=== PATIENT | female | born 1990 | race Two or more races ===

== ENCOUNTER 2023-02-22 10:43 | Outpatient (REF) | payer MEDICAID, SELFPAY | END 2023-02-22 10:44 | disposition home or self-care (01) | LOC: HO.LAB 10:43 | PROVIDERS: PCP Registered Nurse; Visit Provider Registered Nurse | DX: Z00.00 Encounter for general adult medical examination without abnormal findings (principal); Z11.1 Encounter for screening for respiratory tuberculosis | CPT/HCPCS: 36415; 80053; 80061; 83036; 86481 ==

== ENCOUNTER 2023-10-22 10:58 | Outpatient (REF) | payer MEDICAID, SELFPAY ==
[2023-10-22 14:00] LABS: Alanine Aminotransferase 14 U/L (0-31); Albumin Level 4.4 g/dL (3.5-5.0); Alkaline Phosphatase 54 U/L (39-117); Anion Gap 14 (12-20); Aspartate Amino Transferase 17 U/L (5-31); Bilirubin Total 0.7 mg/dL (0.0-1.0); Blood Urea Nitrogen 9 mg/dL (9-16); Calcium 9.7 mg/dL (8.4-10.2); Carbon Dioxide 25 mmol/L (22-29); Chloride 107 mmol/L (96-108); Cholesterol 185 mg/dL (<200); Estimated Glomerular Filt Rate > 60; Glucose Random 101 mg/dL (60-115); HDL Cholesterol 42 mg/dL (>40); LDL Cholesterol Calculated 131 mg/dL (<100); Potassium 3.6 mmol/L (3.3-5.1); Sodium 142 mmol/L (135-145); Total Protein 7.4 g/dL (6.5-8.0); Triglycerides 64 mg/dL (<150)
[2023-10-22 16:33] LABS: CT PCR NOT DETECTED (Not Detect.); NG PCR NOT DETECTED (Not Detect.)
[2023-10-24 07:09] LABS: RPR Rapid Plasma Reagin NON-REACTIVE (NON-REACTIVE)
[2023-10-25 16:57] LABS: HIV RNA PCR Qn Copies Not Detected Copies/mL; HIV RNA PCR Qn Log Copies Not Detected Log cps/mL
== END 2023-10-22 10:59 | disposition home or self-care (01) ==
LOC: HO.HHCL 10:58
PROVIDERS: Visit Provider Nurse Practitioner Family
DX: Z11.4 Encounter for screening for human immunodeficiency virus [HIV] (principal); Z11.3 Encounter for screening for infections with a predominantly sexual mode of transmission; E66.9 Obesity, unspecified
CPT/HCPCS: 0353U; 36415; 80053; 80061; 86592; 87536; 87900

== ENCOUNTER 2024-02-08 16:45 | Outpatient (REF) | payer MEDICAID, SELFPAY ==
[2024-02-08 18:04] LABS: Bacterial Vaginosis PCR POSITIVE (Negative); Candida Group PCR DETECTED (Not Detect); Candida glab krusei PCR NOT DETECTED (Not Detect); Trichomonas vaginalis PCR NOT DETECTED (Not Detect)
[2024-02-08 18:39] LABS: CT PCR NOT DETECTED (Not Detect.); NG PCR NOT DETECTED (Not Detect.)
== END 2024-02-08 16:46 | disposition home or self-care (01) ==
LOC: HO.HHCLNP 16:45
PROVIDERS: Visit Provider Nurse Practitioner Family
DX: R10.32 Left lower quadrant pain (principal)
CPT/HCPCS: 0352U; 0353U

== ENCOUNTER 2024-02-18 16:40 | Outpatient (REF) | payer MEDICAID, SELFPAY ==
[2024-02-29 09:11] LABS: HPV mRNA E6/E7 rflx Not Detected
== END 2024-02-18 16:41 | disposition home or self-care (01) ==
LOC: HO.HHCLNP 16:40
PROVIDERS: Visit Provider Advanced Practice Midwife
DX: Z12.4 Encounter for screening for malignant neoplasm of cervix (principal)
CPT/HCPCS: 36415; 87624; 87625; 88175

== ENCOUNTER 2024-10-15 15:03 | Outpatient (REF) | payer MEDICAID, SELFPAY ==
[2024-10-15 16:16] LABS: MANUAL DIFF FLAG NO
[2024-10-15 16:19] LABS: Basophils Absolute Auto 0.1 X10*3/uL (0.0-0.2); Basophils Percent Auto 0.9 % (0-2); Eosinophils Absolute Auto 0.2 X10*3/uL (0.0-0.4); Eosinophils Percent Auto 4.2 % (0-4); Hematocrit 41.5 % (37.0-47.0); Hemoglobin 14.1 g/dl (12.0-16.0); Lymphocytes Absolute Auto 2.6 X10*3/uL (1.2-4.9); Mean Corpuscular Hemoglobin 30.9 pg (27.0-33.0); Mean Platelet Volume 12.8 fL (9.4-12.3); Monocytes Absolute Auto 0.5 X10*3/uL (0.1-1.2); Neutrophils Absolute Auto 2.3 x10*3/uL (2.0-8.3); Neutrophils Percent Auto 39.9 % (45-73); Platelet Count 196 X10*3/uL (160-400); Red Blood Count 4.56 X10*6/uL (4.20-5.50); Red Cell Distribution Width 11.9 % (11.0-16.0); White Blood Count 5.7 X10*3/uL (4.8-10.8)
[2024-10-15 16:36] LABS: Anion Gap 9 (12-20); Blood Urea Nitrogen 11 mg/dL (9-16); Calcium 9.3 mg/dL (8.4-10.2); Carbon Dioxide 25 mmol/L (22-29); Chloride 109 mmol/L (96-108); Estimated Glomerular Filt Rate > 60; Glucose Random 83 mg/dL (60-115); Sodium 139 mmol/L (135-145)
[2024-10-15 16:42] LABS: Estimated Average Glucose 103 mg/dL; Hemoglobin A1c % 5.2 % (<6.0)
[2024-10-15 16:56] LABS: TSH reflex Free T4 0.62 uIU/mL (0.32-4.0)
--- OUTSIDE RECORDS SUMMARY | 2024-10-15 18:40 | XMS_ITS | Encounter Summary ---
Author Organization [employer] Address [address] [facility] 7[address] [place] [address] Care Team Providers Care Bank Vault Attendant Name Role Phone Carlton Mota CNP Primary Care Provider [phone] [phone] Reason for Referral * Imaging (Routine) - Authorized Specialty Diagnoses / Procedures Referred By Contpinky t Referred To Contact Radiology Diagnoses History of uterine fibroid Procedures Us Pelvis complete Carlton oMta CNP [address] [place] [address] Phone: tel: fax: [facility] [address], [address] [place] [address] Phone: tel: fax: Referral ID Status Reason Start Date Expiration Date V isits Requested Visits Authorized [id number] Authorized 10/15/2024 10/15/2025 1 1 Reason for Visit * Reason Comments Transfer Pt Encounter Details Date Type Department Care Team (Late st Contact Info) Description 10/15/2024 2:00 PM EST Office Visit [facility] [address] [place], [place] [phone] Carlton Mota CNP [address] [place] [address] Healthcare maintenance (Primary Dx); Chronic migraine without aura without status migrainosus, not intractable; Anxiety; Left lower quadrant pain; History of uterine fibroid; Heat intolerance Social History Tobacco Use Types Packs/Day Years Used Date Smoking Tobacco: Never Smokeless Tobacco: Never Alcohol Use Standard Drinks/Week Comments Never 0 (1 standard drink = 0.6 oz pur e alcohol) special occasions, manoj Depression Answer Date Recorded Patient Health Questionnaire-9 Score 4 10/15/2024 Patient Health Questionnaire-9 Score 4 10/15/2024 Last PHQ-9: Questionnaire Data Not on file 0 10/15/2024 Housing Stability Answer Date Recorded What is your housing situation today? I have jaylen elizalde 06/25/[address] you li ve. Do you have problems with any of the following? None of the above 06/25/2023 Food Insecurity Answer Date Recorded Within the past 12 months, y ou worried that your food would run out before you got money to buy more: Never True 06/25/2023 Within the past 12 months,th e food you bought just didn't last and you didn't have enough money to get more: Never True 01/2023 Transportation Answer Date Recorded In the past 12 months, has l ack of transportation kept you from medical appts, meetings, work or from getting things needed for daily living? No 06/25/2023 Utilities Answer Date Recorded In the past 12 months, has t he electric, gas, oil or water company threatened to shut off services in your home? No 06/25/2023 Depression Answer Date Recorded Patient Health Questionnaire-2 Score 2 10/15/2024 Internet Access Answer Date Recorded Internet Access Q1 Yes 10/03/2024 Internet Access Q2 Not on file 10/03/2024 Comments No Sex and Gender Information Value Date Recorded Sex Assigned at Female 06/19/2022 10:37 AM EDT Legal Sex Female 10:37 AM EDT Gender Identity Female 06/19/2022 10:37 AM EDT Sexual Orientation Straight 06/19/2022 10 :37 AM EDT documented as of this encounter Last Filed Vital Signs Vital Sign Reading Time Taken Comments Blood Pressure 114/72 10/15/2024 2:09 PM EST Pulse 88 10/15/2024 2:09 PM EST Temperature 36.8 ??C (98.2 ??F) 10/15/2024 2:09 PM ES T Respiratory Rate 16 10/15/2024 2:09 PM EST Oxygen Saturation 99% 10/15/2024 2:09 PM EST Inhaled Oxygen Concentration - - Weight 85.1 kg (187 lb 9.6 oz) 10/15/2024 2:09 P M EST Height - - Body Mass Index 28.52 02/18/2024 9:26 AM EDT documented in this encounter Progress Notes * Carlton Mota CNP - 10/15/2024 2:00 PM EST Images from the original note were not included. Subjective: Ranjith Hercules is a 34 y.o. female who presents to the office for a transfer patient visit. Previous PCP Mariajose. Interim history: Pt established with for depression and anxiety. Missed last appointment in 04/2024. Last visit on 03/2024 with Mariajose. At this point she discussed menorrhagia. She was advised to take ibuprofen and alternate with tylenol. She had a pelvic US on 01/2024 which showed single fibroid measuring 1.3x1.0x1.3 cm. Pt has hx of migraines, they are controlled on Excedrin, gets them less than once a month. Current concerns: Fibroid- Pt reporting that she feels a bulge when she coughs on the same side as the fibroid, she also reports that she feels like her fibroid gets larger with her period. She reports her periods are regular, she gets them monthly, they are not painful, bleeding is manageable and period lasts 5 days. She would like to have the fibroid reevaluated. Heat intolerance- Pt reports she has been having hot flashes her last incident was this past Sunday she was sitting down watching a [employer] movie with her partner and all of a sudden she got hot andstarted sweating. 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 Patient Active Problem List Diagnosis Class 1 obesity Menorrhagia Migraine Constipation Sensitive skin Moderate episode of recurrent major depressive disorder (CMS/HCC) Anxiety History of uterine fibroid Heat intolerance Past Surgical History: Procedure Laterality Date COSMETIC SURGERY abdominoplasty TUBAL LIGATION Family History Problem Relation Name Age of Onset Diabetes Mother Emma Justine Other (epilepsy) Mother Emma Justine Arthritis Mother Emma Justine Diabetes Maternal Grandmother Fide Grigsby Diabetes Maternal Grandfather Fide Grigsby Arthritis Maternal Grandfather Fide Grigsby Asthma Son Jackie Robertson Intellectual Disability Son Jackie Robertson Social History Living situation: lives at home 3 children 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 LMP 10/02, last about 5 days, normal bleeding, says cramping is manageable. No Known Allergies Review of Systems Constitutional: Negative for chills, diaphoresis, fatigue and unexpected weight change. Respiratory: Negative for cough, choking, chest tightness, shortness of breath and wheezing. Cardiovascular: Negative for chest pain and palpitations. Gastrointestinal: Negative for abdominal distention, abdominal pain, constipation, diarrhea, nauseaand vomiting. Genitourinary: Positive for pelvic pain. Negative for vaginal bleeding, vaginal discharge and vaginal pain. Reports the pelvic pain in left lower pelvic area when she coughs or after sex Musculoskeletal: Negative for arthralgias, back pain and myalgias. Neurological: Negative. Psychiatric/Behavioral: Negative. Vitals: 10/15/24 1409 BP: 114/72 Pulse: 88 Resp: 16 Temp: 98.2 ??F (36.8 ??C) TempSrc: Oral SpO2: 99% Weight: 187 lb 9.6 oz (85.1 kg) Physical Exam Constitutional: General: She is not in acute distress. Appearance: Normal appearance. She is not ill-appearing. HENT: Head: Normocephalic and atraumatic. Right Ear: Tympanic membrane, ear canal and external ear normal. There is no impacted cerumen. Left Ear: Tympanic membrane, ear canal and external ear normal. There is no impacted cerumen. Nose: No congestion or rhinorrhea. Mouth/Throat: Mouth: Mucous membranes are moist. Pharynx: No oropharyngeal exudate or posterior oropharyngeal erythema. Eyes: General: No scleral icterus. Right eye: No discharge. Left eye: No discharge. Extraocular Movements: Extraocular movements intact. Pupils: Pupils are equal, round, and reactive to light. Cardiovascular: Rate and Rhythm: Normal rate and regular rhythm. Pulses: Normal pulses. Heart sounds: Normal heart sounds. No murmur heard. No friction rub. No gallop. Pulmonary: Effort: Pulmonary effort is normal. No respiratory distress. Breath sounds: Normal breath sounds. No stridor. No wheezing, rhonchi or rales. Chest: Chest wall: No tenderness. Abdominal: General: Abdomen is flat. Bowel sounds are normal. There is no distension. Palpations: Abdomen is soft. There is no mass. Tenderness: There is no abdominal tenderness. There is no guarding. Comments: Palpated some scar tissue underneath abdominoplasty scar on LLQ Musculoskeletal: General: Normal range of motion. Cervical back: Normal range of motion and neck supple. No tenderness. Right lower leg: No edema. Left lower leg: No edema. Lymphadenopathy: Cervical: No cervical adenopathy. Skin: General: Skin is warm and dry. Capillary Refill: Capillary refill takes less than 2 seconds. Neurological: General: No focal deficit present. Mental Status: She is alert and oriented to person, place, and time. Psychiatric: Mood and Affect: Mood normal. Behavior: Behavior normal. Thought Content: Thought content normal. Judgment: Judgment normal. Problem List Items Addressed This Visit Migraine Overview Occurring <1 a month, controlled with Excedrin Current Assessment & Plan Sent refills of Excedrin to have on hand for migraines, as of now they are stable and are limited to <1 a month Relevant Medications hydrOXYzine pamoate (Vistaril) 25 MG capsule [id number] (Excedrin Migraine) 250-250-65 MG tablet Anxiety Current Assessment & Plan Pt reports that anxiety is manageable and she is happy with Vistaril 25 mg prn She does have care team and declines further support at this time. RESOLVED: Left lower quadrant pain History of uterine fibroid Current Assessment & Plan Will obtain repeat pelvic us to reevaluate size of fibroid Also provided MEDICAL DOCTOR referral for removal consultation Based on exam, the mass she feels when she coughs may be related to scar tissue under her abdominoplasty incision F/u in 1 month or sooner for this issue Relevant Orders Us Pelvis complete Heat intolerance Current Assessment & Plan No known family hx of thyroid disorders Will obtain routine blood work including thyroid panel- see orders Other Visit Diagnoses Healthcare maintenance - Primary Relevant Orders TSH W/Reflex to FT4 CBC auto differential (Completed) Basic Metabolic Panel (Completed) Hemoglobin A1c (Completed) Routine Screening and Health Maintenance Optometry: Yes, [facility], has appointment end of November Dentist: Yes next appointment in March Routine Cancer Screening Cervical CA: 02/18/2024, NILM, HPV Neg HHC SLAB INSPECTOR Attestation SLAB INSPECTOR Resident Attestation: Patient was seen and evaluated by Carlton Mota CNP, in collaboration with Christian Martinez MDwho has reviewed my assessment and plan. I, Michelle Gonzalse MD , have reviewed the resident's note and agree with the assessment & plan of care as documented above. documented in this encounter Miscellaneous Notes * Assessment & Plan Note - Carlton Mota CNP - 10/15/2024 4:46 PM EST Associated Problem(s): History of uterine fibroid Will obtain repeat pelvic us to reevaluate size of fibroid Also provided MEDICAL DOCTOR referral for removal consultation Based on exam, the mass she feels when she coughs may be related to scar tissue under her abdominoplasty incision F/u in 1 month or sooner for this issue * Assessment & Plan Note - Carlton Mota CNP - 10/15/2024 4:44 PM EST Associated Problem(s): Anxiety Pt reports that anxiety is manageable and she is happy with Vistaril 25 mg prn She does have care team and declines further support at this time. * Assessment & Plan Note - Carlton Mota CNP - 10/15/2024 4:43 PM EST Associated Problem(s): Migraine Sent refills of Excedrin to have on hand for migraines, as of now they are stable and are limited to <1 a month * Assessment & Plan Note - Carlton Mota CNP - 10/15/2024 4:42 PM EST Associated Problem(s): Heat intolerance No known family hx of thyroid disorders Will obtain routine blood work including thyroid panel- see orders documented in this encounter Plan of Treatment Upcoming Encounters Date Type Department Care Team (Late st Contact Info) Description 11/12/2024 3:15 PM EDT Office Visit [facility] [address] [place] [phone] Carlton Mota CNP [address] [employer], [place] [phone] Scheduled Orders Name Type Priority Associated Diagnoses Orde r Schedule Us Pelvis complete Imaging Routine History of uterine fibroid Expected: 10/15/2024, Expires: 10/15/2025 documented as of this encounter Procedures Procedure Name Priority Date/Time Associated Diagnosis Comments TSH W/REFLEX TO FT4 Routine 10/15/2024 3 :07 PM EST Healthcare maintenance CBC WITH AUTO DIFFERENTIAL Routine 10/15/2024 3:07 PM EST Healthcare maintenance HEMOGLOBIN A1C Routine 10/15/2024 3:07 PM EST Healthcare maintenance BASIC METABOLIC PANEL Routine 10/15/2024 3:07 PM EST Healthcare maintenance documented in this encounter Results * Hemoglobin A1c (10/15/2024 3:07 PM EST) Hemoglobin A1c 5.2 <6.0 % [facility] Comment:Hemoglobin A1C Refer ence Range Adults: 4.8 - 6.0 % Non diabetic: < 6.0 % Goal: < 7.0 %Additional Action Suggested: > 8.0 %Note: Hemoglobin A1c results are invalid for patients with abnormal amounts of HbF. Blood transfusions may impact the HbA1c concentration in the patient sample. Estimated Average Glucose 103 mg/dL [facility] Comment:eAG = Estimated ave rage glucose which is %A1C expressed asaverage glucose, using the formula of the Q4I-KtjqtqgUkjkidb Glucose study (ADAG), Diabetes Care, Vol.31,#8,Mar. 2007 Blood Venous blood specimen / Unknown 10/15/2024 3:07 PM EST 10/15/2024 4:14 PM EST [facility] BLOOD ORDERABLES Tiara l Result Performing Organization Address [facility] Co de Phone Number [facility] [address] [place] [phone] [phone] * (ABNORMAL) Basic Metabolic Panel (10/15/2024 3:07 PM EST) Sodium 139 135 - 145 mmol/L [facility] Potassium 4.0 3.3 - 5.1 mmol/L [facility] Chloride 109(H) 96 - 108 mmol/L [facility] Carbon Dioxide 25 22 - 29 mmol/L [facility] Anion Gap 9(L) 12 - 20 [facility] Urea Nitrogen (BUN) 11 9 - 16 mg/dL [facility] Creatinine, Serum 0.74 0.5 - 1.4 mg/dL [facility] Estimated Glomerular Filt Rate >60 [facility] Comment:Chronic Kidney Disea se: Estimated GFR < 60 mL/min/1.34x2Wxigmk Kidney Disease: Estimated GFR < 15 mL/min/1.73m2 Glucose 83 60 - 115 mg/dL [facility] Calcium 9.3 8.4 - 10.2 mg/dL [facility] Blood Venous blood specimen / Unknown 10/15/2024 3:07 PM EST 10/15/2024 4:14 PM EST [facility] BLOOD ORDERABLES Tiara l Result Performing Organization Address [facility] Co de Phone Number [facility] [address] [place] [phone] * (ABNORMAL) CBC auto differential (10/15/2024 3:07 PM EST) White Blood Count 5.7 4.8 - 10.8 X10*3/uL [facility] Red Blood Count 4.56 4.20 - 5.50 X10*6/uL [facility] Hemoglobin 14.1 12.0 - 16.0 g/dl [facility] Hematocrit 41.5 37.0 - 47.0 % [facility] Mean Corpuscular Volume 91.0 80.0 - 98.0 fL [facility] Mean Corpuscular Hemoglobin 30.9 27.0 - 33.0 pg [facility] Mean Corpuscular HGB Conc 34.0 31.0 - 35.0 g/dl [facility] Red Cell Distribution Width 11.9 11.0 - 16.0 % [facility] Platelet Count 196 160 - 400 X10*3/uL [facility] Mean Platelet Volume 12.8(H) 9.4 - 12.3 fL [facility] Neutrophils Percent Auto 39.9(L) 45 - 73 % [facility] Imm Gran Pct Auto 0.0 0.0 - 0.4 % [facility] Lymphocytes Percent Auto 46.0(H) 20 - 40 % [facility] Monocytes Percent Auto 9.0 2 - 11 % [facility] Eosinophils Percent Auto 4.2(H) 0 - 4 % [facility] Basophils Percent Auto 0.9 0 - 2 % [facility] NRBC Pct Auto 0.0 0.0 - 0.2 /100WBC [facility] Neutrophils Absolute Auto 2.3 2.0 - 8.3 x10*3/uL [facility] Imm Gran Abs Auto 0.00 0.00 - 0.03 X10*3/uL [facility] Lymphocytes Absolute Auto 2.6 1.2 - 4.9 X10*3/uL [facility] Monocytes Absolute Auto 0.5 0.1 - 1.2 X10*3/uL [facility] Eosinophils Absolute Auto 0.2 0.0 - 0.4 X10*3/uL [facility] Basophils Absolute Auto 0.1 0.0 - 0.2 X10*3/uL [facility] NRBC Abs Auto 0.000 0.0 - 0.012 X10*3/uL [facility] Blood Venous blood specimen / Unknown 10/15/2024 3:07 PM EST 10/15/2024 4:14 PM EST [facility] BLOOD ORDERABLES Tiara l Result Performing Organization Address [facility] Co de Phone Number [facility] [address] [place] [phone] * TSH W/Reflex to FT4 (10/15/2024 3:07 PM EST) TSH reflex Free T4 0.62 0.32 - 4.0 uIU/mL [facility] Blood Venous blood specimen / Unknown 10/15/2024 3:07 PM EST 10/15/2024 4:14 PM EST [facility] BLOOD ORDERABLES Tiara l Result Performing Organization Address [facility] Co de Phone Number [facility] [address] [place] [phone] documented in this encounter Visit Diagnoses Diagnosis Healthcare maintenance- Primary Chronic migraine without aura without status migrainosus, not intractable Anxiety Anxiety state, unspecified Left lower quadrant pain Abdominal pain, left lower quadrant History of uterine fibroid Heat intolerance Unspecified effects of heat and light documented in this encounter Additional Health Concerns Assessment Noted Time PHQ-9 Depression Total Score: 4 10/15/19 25 2:21 PM EST documented as of this encounter Care Teams Bank Vault Attendant Relationship Specialty Start Date End Date Carlton Mota CNP [address] [place] [phone] PCP - General Family Medicine 09/05/24 documented as of this encounter
--- OUTSIDE RECORDS SUMMARY | 2024-10-15 18:40 | XMS_ITS | Encounter Summary ---
Author Organization [employer] Address [address] [place] [address] Care Team Providers Care Metal Polisher Name Role Phone Nakul Brodymauricio JORDAN Primary Care Provider [phone] Encounter Details Date Type Department Care Team (Latest Contact Info) Description 10/12/2024 Travel Social History Tobacco Use Types Packs/Day Years Used Date Smoking Tobacco: Never Smokeless Tobacco: Never Alcohol Use Standard Drinks/Week Comments Never 0 (1 standard drink = 0.6 oz pur e alcohol) special occasions, manoj Depression Answer Date Recorded Patient Health Questionnaire-9 Score 9 04/15/2024 Patient Health Questionnaire-9 Score 9 04/15/2024 Last PHQ-9: Questionnaire Data Not on file 0 04/15/2024 Housing Stability Answer Date Recorded What is [...] Answer Date Recorded Patient Health Questionnaire-2 Score 4 04/15/2024 Internet Access Answer Date Recorded Internet Access Q1 Yes 10/03/2024 Internet Access Q2 Not on file 10/03/2024 Comments No Sex and Gender Information Value Date Recorded Sex Assigned at Female 06/19/2022 10:37 AM EDT Legal Sex Female 10:37 AM EDT Gender Identity Female 06/19/2022 10:37 AM EDT Sexual Orientation Straight 06/19/2022 10 :37 AM EDT documented as of this encounter Plan of Treatment Upcoming Encounters Date Type Department Care Team (Late st Contact Info) Description 11/12/2024 3:15 PM EDT Office Visit [facility] [address] [place] [address] Carlton Mota CNP [address] [place] [address] documented as of this encounter Visit Diagnoses Not on filedocumented in this encounter Additional Health Concerns Assessment Noted Time PHQ-9 Depression Total Score: 9 04/15/20 24 1:14 PM EDT documented as of this encounter Care Teams Metal Polisher Relationship Specialty Start Date End Date Carlton Mota CNP [address] [place], [place] [phone] PCP - General Family Medicine 09/05/24 documented as of this encounter
--- OUTSIDE RECORDS SUMMARY | 2024-10-15 18:40 | XMS_ITS | Encounter Summary ---
Author Organization [employer] Address [address] [facility] [address] [place] [address] Care Team Providers Care Optician Name Role Phone Carlton Mota CNP Primary Care Provider [phone] Reason for Visit * Reason Comments Pre-visit Planning SDOH Screening negat mp and Tobacco screening negative Encounter Details Date Type Department Care Team ([facility] st Contact Info) Description 10/03/2024 Patient Outreach [facility] [address] [place] [address] Carlton Mota CNP [address] [place] [address] Pre-visit Planning (SDOH Screening negative and Tobacco screening negative) Social History Tobacco Use Types Packs/Day Years [...] AM EDT documented as of this encounter Progress Notes * Wilma Godinez - 10/03/2024 9:26 AM EST ESAU Meeks placed successful outbound call to patient for pre-visit planning. Patient name and confirmed. Patient confirms appt date and time, and has transportation arrangements. 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 Patient educated on extended clinic hours. Patient advised to bring to appointment a photo id andinsurance card. Appropriate screenings completed in anticipation of appointment. documented in this encounter Plan of Treatment Upcoming Encounters Date Type Department Care Team (Late st Contact Info) Description 11/12/2024 3:15 PM EDT Office Visit [facility] [address] [place] [address] Carlton Mota CNP [address] [place] [address] documented as of this encounter Visit Diagnoses Not on filedocumented in this encounter Additional Health Concerns Assessment Noted Time PHQ-9 Depression Total Score: 9 04/15/20 24 1:14 PM EDT documented as of this encounter Care Teams Optician Relationship Specialty Start Date End Date Carlton Mota CNP [address] [place] [phone] PCP - General Family Medicine 09/05/24 documented as of this encounter
--- OUTSIDE RECORDS SUMMARY | 2024-10-15 18:40 | XMS_ITS | Encounter Summary ---
Author Organization [facility] Address [address] 7[address] [place] [address] Care Team Providers Care Fingerprint Expert Name Role Phone Nakul Brodymauricio JORDAN Primary Care Provider [phone] Encounter Details Date Type Department Care Team (Latest Contact Info) Description 10/15/2024 Travel Social History Tobacco Use Types Packs/Day [...] Description 11/12/2024 3:15 PM EDT Office Visit [facility] [address] [place] [address] Carlton Mota CNP [address] [place] [address] documented as of this encounter Visit Diagnoses Not on filedocumented in this encounter Additional Health Concerns Assessment Noted Time PHQ-9 Depression Total Score: 4 10/15/19 2:21 PM EST documented as of this encounter Care Teams Fingerprint Expert Relationship Specialty Start Date End Date Carlton Mota CNP [address] [place] [address] PCP - General Family Medicine 09/05/24 documented as of this encounter
--- OUTSIDE RECORDS SUMMARY | 2024-10-15 18:40 | XMS_ITS | Clinical Summary ---
Author Organization [employer] Address [address] [facility] 7t [place] [address] Care Team Providers Care Container Washer Machine Name Role Phone Carlton Mota CNP Primary Care Provider [phone] Allergies No known active allergies Medications * This document contains information received from the source organization and may not represent a complete record from that organization. hydrOXYzine pamoate (Vistaril) 25 MG capsuleIndicati ons:Chronic migraine without aura without status migrainosus, not intractable Take 1 capsule (25 mg) by mouth every 8 (eight) hours if needed for anxiety. 30 capsule 1 10/15/19 25 026 Active aspirin-acetami nophen-caffeine (Excedrin Migraine) 250-250-65 MG tabletIndicatio ns:Chronic migraine without aura without status migrainosus, not intractable Take 2 tablets by mouth if needed each day for headaches. 90 tablet 1 10/15/19 25 Active aspirin-acetami nophen-caffeine (Excedrin Migraine) 250-250-65 MG tabletIndicatio ns:Chronic migraine without aura without status migrainosus, not intractable Take 2 tablets by mouth if needed each day for headaches. 90 tablet 1 02/23/20 23 025 Discontinued(Re order (will not trigger notification to Pharmacy)) hydrOXYzine pamoate (Vistaril) 25 MG capsule Take 1 capsule (25 mg) by mouth every 8 (eight) hours if needed for anxiety. 30 capsule 1 04/11/20 24 025 Discontinued(Re order (will not trigger notification to Pharmacy)) aspirin-acetami nophen-caffeine (Excedrin Migraine) 250-250-65 MG tabletIndicatio ns:Chronic migraine without aura without status migrainosus, not intractable Take 2 tablets by mouth if needed each day for headaches. 90 tablet 1 10/15/19 25 025 Discontinued Active Problems Problem Noted Date Diagnosed Date History of uterine fibroid 10/15/2024 Assessment & Plan (10/15/2024 4:46 PM EST): Will obtain repeat pelvic us to reevaluate size of fibroid Also provided FUR SEWER referral for removal consultation Based on exam, the mass she feels when she coughs may be related to scar tissue under her abdominoplasty incision F/u in 1 month or sooner for this issue Heat intolerance 10/15/2024 Assessment & Plan (10/15/2024 4:42 PM EST): No known family hx of thyroid disorders Will obtain routine blood work including thyroid panel- see orders Moderate episode of recurrent major depressive d isorder 04/15/2024 Anxiety 04/15/2024 Assessment & Plan (10/15/2024 4:44 PM EST): Pt reports that anxiety is manageable and she is happy with Vistaril 25 mg prn She does have care team and declines further support at this time. Class 1 obesity 02/22/2023 Menorrhagia 02/22/2023 Overview (02/22/2023): Heavy w/ cramps. Regular. LMP: 02/02/23. Assessment & Plan (02/22/2023 10:07 AM EDT): Not treating with anything. Not seeking Contraception: BTL 7 years ago F/u 1 month with new PCP Migraine 02/22/2023 Overview (10/15/2024): Occurring <1 a month, controlled with Excedrin Assessment & Plan (10/15/2024 4:43 PM EST): Sent refills of Excedrin to have on hand for migraines, as of now they are stable and are limited to <1 a month Assessment & Plan (02/22/2023 10:05 AM EDT): Educated pt to track migraines, notice triggers Rx Excedrin 2 tab daily PRN for headaches F/u 1 month TP with new PCP Constipation 02/22/2023 Assessment & Plan (02/22/2023 10:08 AM EDT): Pt does not drink water Recommended 8 glasses of water/day Add flavoring to water followup 1 month with TP with new PCP Sensitive skin 02/22/2023 Overview (02/22/2023): Sensitive skin Irritated by exposure contact with plastic bags/surfaces Assessment & Plan (02/22/2023 10:13 AM EDT): Self-resolving within 1 day Recommended using sensitive soaps/lotions Avoiding contact with items that irritate the skin most Followup PRN Resolved Problems Problem Noted Date Diagnosed Date Resolved Date Left lower quadrant pain 10/15/2024 Encounters Date Type Department Care Team Description 10/15/2024 2:00 PM EST Office Visit [facility] [address] [place] [phone] Carlton Mota CNP Healthcare maintenance (Primary Dx); Chronic migraine without aura without status migrainosus, not intractable; Anxiety; Left lower quadrant pain; History of uterine fibroid; Heat intolerance 10/15/2024 Travel 10/12/2024 Travel 10/03/2024 Patient Outreach [facility] [address] [place] [phone] Carlton Mota CNP Pre-visit Planning (SDOH Screening negative and Tobacco screening negative) 09/30/2024 Telephone [facility] [address] [place] [phone] Carlton Mota CNP Chart Prep from Last 3 Months Immunizations Name Administration Dates Next Due Hep B, adult 10/22/2023,02/22/2023 Pfizer Covid-19 Vaccine 12+ carlie-sucrose (Amaya C ap) 01/11/2021,12/21/2020 Tdap 10/22/2023 Family History Medical History Relation Name Comments Arthritis Maternal Grandfather Fide Grigsby Diabetes Maternal Grandfather Fide Grigsby Diabetes Maternal Grandmother Fide Grigsby Arthritis Mother Emma Fletcher Diabetes Mother Emma Fletcher epilepsy Mother Emma Fletcher Asthma Son Jackie Robertson Intellectual Disability Son Jackie Robertson Relation Name Status Comments Maternal Grandfather Fide Grigsby Maternal Grandmother Fide Grigsyb Mother mEma Fletcher Son Jackie Robertson Social History Tobacco Use Types Packs/Day Years Used Date Smoking Tobacco: Never Smokeless Tobacco: Never Tobacco Cessation:Counseling Given: Not Answered Alcohol Use Standard Drinks/Week Comments Never 0 [...] Orientation Straight 06/19/2022 10 :37 AM EDT Last Filed Vital Signs Vital Sign Reading [...] oz) 10/15/2024 2:09 P M EST Height 172.7 cm (5' 8 ) 02/18/2024 9:26 AM EDT Body Mass Index 28.52 02/18/2024 9:26 AM EDT Plan of Treatment Upcoming Encounters Date Type Department Care Team (Late st Contact Info) Description 11/12/2024 3:15 PM EDT Office Visit [facility] [address] [place], [place] [phone] Carlton Mota, [facility] [address] [place], [place] [phone] Health Maintenance Due Date Last Done Comments Alcohol/Substance Use Screening 2004 Hepatitis B Vaccines (3 of 3 - 19+ 3-dose series) 12/17/2023 10/22/2023, 02/22/2023 COVID-19 Vaccine (4 - 2023-2 5 season) 2024 11/15/2021, 01/11/2021, 12/21/2020 Influenza Vaccine (#1) 2024 Family Planning (PISQ) 02/17/2025 02/18/2024 Tobacco Screening 04/11/2025 04/11/2024 SDOH Screening 10/03/2025 10/03/2024 Depression Screening 10/15/2025 10/15/2024, 10/15/2024 Lipid Panel 10/21/2028 10/22/2023, 02/22/2023, 08/16/2020 Cervical Cancer Screening 02/17/2029 HPV/Cotest 02/17/2029 02/18/2024 Pap Smear 02/17/2029 02/18/2024, 02/18/2024 DTaP/Tdap/Td Vaccines (2 - T d or Tdap) 10/21/2033 10/22/2023 Zoster Vaccines (1 of 2) 2042 RSV Patients and Patients Aged 60 years or older (1 - 1-dose 75+ series) 2067 HIV Screening Completed 08/16/2020 Hepatitis C Screening Completed 08/16/2020 HIB Vaccines Aged Out No longer eligi ble based on patient's age to complete this topic HPV Vaccines Aged Out No longer eligi ble based on patient's age to complete this topic Hepatitis A Vaccines Aged Out No long er eligible based on patient's age to complete this topic IPV Vaccines Aged Out No longer eligi ble based on patient's age to complete this topic Meningococcal Vaccine Aged Out No marcela elizabeth eligible based on patient's age to complete this topic Pneumococcal Vaccine: Pediatrics (0 to 5 Years) and At-Risk Patients (6 to 49) Years) Aged Out No longer eligible b ased on patient's age to complete this topic RSV under 20 months Aged Out No longe r eligible based on patient's age to complete this topic Rotavirus Vaccines Aged Out No longer eligible based on patient's age to complete this topic Procedures Procedure Name Priority Date/Time Associated Diagnosis Comments HEMOGLOBIN A1C Routine 10/15/2024 3:07 PM EST Healthcare maintenance BASIC METABOLIC PANEL Routine 10/15/2024 3:07 PM EST Healthcare maintenance CBC WITH AUTO DIFFERENTIAL Routine 10/15/2024 3:07 PM EST Healthcare maintenance TSH W/REFLEX TO FT4 Routine 10/15/2024 3 :07 PM EST Healthcare maintenance HPV MRNA E6/E7 REFLEX TO HPV 16, 18/45 Routine 02/18/2024 9:50 AM EDT PAP SMEAR Routine 02/18/2024 12:00 AM EDT LIPID PANEL, STANDARD Routine 10/22/2023 11:03 AM EST Class 1 obesity ZZZ HISTORICAL HEPATITIS C AB W/REFL TO HCV RNA, QN, PCR Routine 08/16/2020 2:20 PM EST HIV 1/2 ANTIGEN/ANTIBODY, FOURTH GENERATION W/RFL Routine 08/16/2020 2:20 PM EST from Last 3 Months or Most Recently Relevant to Health Maintenance Results * TSH W/Reflex to FT4 (10/15/2024 3:07 PM EST) TSH reflex Free T4 0.62 0.32 - 4.0 uIU/mL [facility] Blood Venous blood specimen / Unknown 10/15/2024 3:07 PM EST 10/15/2024 4:14 PM EST [facility] LAB BLOOD ORDERABLES Tiara l Result [facility] [address] [place] [phone] * (ABNORMAL) CBC auto differential (10/15/2024 3:07 PM EST) White Blood Count 5.7 4.8 - 10.8 X10*3/uL [facility] Red Blood Count 4.56 4.20 - 5.50 X10*6/uL [facility] Hemoglobin 14.1 12.0 - 16.0 g/dl [facility] Hematocrit 41.5 37.0 - 47.0 % [facility] Mean Corpuscular Volume 91.0 80.0 - 98.0 fL [facility] Mean Corpuscular Hemoglobin 30.9 27.0 - 33.0 pg [facility] Mean Corpuscular HGB Conc 34.0 31.0 - 35.0 g/dl [facility] Red Cell Distribution Width 11.9 11.0 - 16.0 % [facility] Platelet Count 196 160 - 400 X10*3/uL [facility] Mean Platelet Volume 12.8(H) 9.4 - 12.3 fL [facility] Neutrophils Percent Auto 39.9(L) 45 - 73 % [facility] Imm Gran Pct Auto 0.0 0.0 - 0.4 % [facility] Lymphocytes Percent Auto 46.0(H) 20 - 40 % [facility] Monocytes Percent Auto 9.0 2 - 11 % [facility] Eosinophils Percent Auto 4.2(H) 0 - 4 % [facility] Basophils Percent Auto 0.9 0 - 2 % [facility] NRBC Pct Auto 0.0 0.0 - 0.2 /100WBC [facility] Neutrophils Absolute Auto 2.3 2.0 - 8.3 x10*3/uL [facility] Imm Gran Abs Auto 0.00 0.00 - 0.03 X10*3/uL [facility] Lymphocytes Absolute Auto 2.6 1.2 - 4.9 X10*3/uL [facility] Monocytes Absolute Auto 0.5 0.1 - 1.2 X10*3/uL [facility] Eosinophils Absolute Auto 0.2 0.0 - 0.4 X10*3/uL [facility] Basophils Absolute Auto 0.1 0.0 - 0.2 X10*3/uL [facility] NRBC Abs Auto 0.000 0.0 - 0.012 X10*3/uL [facility] Blood Venous blood specimen / Unknown 10/15/2024 3:07 PM EST 10/15/2024 4:14 PM EST [facility] LAB BLOOD ORDERABLES Tiara l Result [facility] [address] [place], [place] [phone] * Hemoglobin A1c (10/15/2024 3:07 PM EST) Hemoglobin A1c 5.2 <6.0 % [facility] Comment:Hemoglobin A1C Refer ence Range Adults: 4.8 - 6.0 % Non diabetic: < 6.0 % Goal: < 7.0 %Additional Action Suggested: > 8.0 %Note: Hemoglobin A1c results are invalid for patients with abnormal amounts of HbF. Blood transfusions may impact the HbA1c concentration in the patient sample. Estimated Average Glucose 103 mg/dL [facility] Comment:eAG = Estimated ave rage glucose which is %A1C expressed asaverage glucose, using the formula of the [id number] Glucose study (ADAG), Diabetes Care, Vol.31,#8,Mar. 2007 Blood Venous blood specimen / Unknown 10/15/2024 3:07 PM EST 10/15/2024 4:14 PM EST [facility] LAB BLOOD ORDERABLES Tiara l Result Performing Organization Address [facility] Co de Phone Number [facility] [address] [place] [phone] * (ABNORMAL) Basic Metabolic Panel (10/15/2024 3:07 PM EST) Sodium 139 135 - 145 mmol/L [facility] Potassium 4.0 3.3 - 5.1 mmol/L [facility] Chloride 109(H) 96 - 108 mmol/L [facility] Carbon Dioxide 25 22 - 29 mmol/L [facility] Anion Gap 9(L) 12 - 20 [facility] Urea Nitrogen (BUN) 11 9 - 16 mg/dL [facility] Creatinine, Serum 0.74 0.5 - 1.4 mg/dL [facility] Estimated Glomerular Filt Rate >60 [facility] Comment:Chronic Kidney Disea se: Estimated GFR < 60 mL/min/1.80z8Ggsphk Kidney Disease: Estimated GFR < 15 mL/min/1.73m2 Glucose 83 60 - 115 mg/dL [facility] Calcium 9.3 8.4 - 10.2 mg/dL [facility] Blood Venous blood specimen / Unknown 10/15/2024 3:07 PM EST 10/15/2024 4:14 PM EST [facility] LAB BLOOD ORDERABLES Tiara l Result Performing Organization Address City/[facility]/ZIP Co de Phone Number [facility] [address] [place] [address] [phone] * HPV mRNA E6/E7 w/Reflex to HPV Genotypes 16, 18/45 (02/18/2024 9:50 AM EDT) HPV nRNA E6/E7 Not Detected [facility] Comment:Methodology: Transcr iption-Mediated AmplificationThis assay detects E6/E7 viral messenger RNA (mRNA) from 14high-risk HPV types(16,18,31,33,35,39,45,51,52,56,58,59,66,68).Cervical sources are required for HPV testing.If a vaginal source from a patient who has had atotal hysterectomy with removal of cervix wassubmitted, please contact the testing laboratoryfor alternative testing options.For additional information, please refer tohttp://education.ZOGOtennis/faq/XGW962h9(This link if provided for information/educational purposes only.)THIS TEST PERFORMED AT:[facility] [place] [phone] DIRECTOR: KIMMY MA MD HPV mRNA E6/E7 [facility] HPV 16 RNA [facility] HPV 18/[address] [facility] 02/18/2024 9:50 AM EDT 02/26/2024 1:43 PM EDT Nidhi Peoples [facility] CYTOLOGY ORDERABLES F inal Result Performing Organization Address [facility]/ZIP Co de Phone Number [facility] [address] [place] [address] [phone] * Pap Smear (02/18/2024 12:00 AM EDT) Swab Nidhi Peoples [facility] CYTOLOGY ORDERABLES F inal Result Performing Organization Address City/[facility]/ZIP Co de Phone Number [facility] [address] [place] [phone] * (ABNORMAL) Lipid Panel, Standard (10/22/2023 11:03 AM EST) Triglycerides 64 <150 mg/dL [facility] Comment:Desirable Triglyceri de: less than 150 mg/dLBorderline High Triglyceride 150-199 mg/dLHigh Triglyceride: 200-499 mg/dLVery High Triglyceride: greater than or equal to 5OO mg/dL Cholesterol 185 <200 mg/dL [facility] Comment:Desirable Cholestero l: less than 200 mg/dLBorderline High Cholesterol: 200-239 mg/dLHigh Cholesterol: greater than 239 mg/dL LDL Cholesterol Calculated 131(H) <100 mg/dL [facility] Comment:Desirable LDL: less than 100 mg/dLNear Optimal/Above Optimal LDL: 110- 129 mg/dLBorderline High LDL: 130-159 mg/dLHigh LDL: 160-189 mg/dLVery High LDL: greater than or equal to 190 mg/dL HDL Cholesterol 42 >40 mg/dL [facility] Comment:Desirable HDL: great er than 40 mg/dL Note: This HDL assay may give artificially low results in patients with liver disease. Blood Venous blood specimen / Unknown 10/22/2023 11:03 AM EST 10/22/2023 1:21 PM EST Kristie Billy PERSONAL SECURITY SPECIALIST LAB BLOOD ORDERABLES Final Resu lt [facility] [address] [place] [phone] [phone] * HEPATITIS C AB W/REFL TO HCV RNA, QN, PCR (08/16/2020 2:20 PM EST) HEPATITIS C ANTIBODY NON-REACT А[facility]Р NON-REACT [facility] INDEX 0.01 <1.00 [facility] Comment: ?? HCV antibody was non-reactive. There is no laboratory ?? evidence of HCV infection. ?? In most cases, no further action is required. However, if recent HCV exposure is suspected, a test for HCV RNA (test code 15022) is suggested. ?? For additional information please refer to http://Festicket.ZOGOtennis/faq/RWO72w1 (This link is being provided for informational/ educational purposes only.) ?? 08/16/2020 2:20 PM EST Historical Provider HISTORICAL/NON ORDERABLE LABS Final Result Performing Organization Address [facility] Co de Phone Number [facility] [address] * HIV 1/2 ANTIGEN/ANTIBODY,FOURTH GENERATION W/RFL (08/16/2020 2:20 PM EST) HIV-1/2 ANTIGEN AND ANTIBODIES, 4TH GENERATION W/ REFLEX NON-REACT АЛЕКСАНДР NON-REACT АЛЕКСАНДР [facility] Comment: HIV-1 antigen and HIV-1/HIV-2 antibodies were not detected. There is no laboratory evidence of HIV infection. ?? PLEASE NOTE: This information has been disclosed to you from records whose confidentiality may be protected by state law. ??If your state requires such protection, then the state law prohibits you from making any further disclosure of the information without the specific written consent of the person to whom it pertains, or as otherwise permitted by law. A general authorization for the release of medical or other information is NOT sufficient for this purpose. ? For additional information please refer to http://Festicket.ZOGOtennis/faq/ZEE601 (This link is being provided for informational/ educational purposes only.) ? The performance of this assay has not been clinically validated in patients less than 2 years old. ?? 08/16/2020 2:20 PM EST Historical Provider LAB BLOOD ORDERABLES Tiara l Result Performing Organization Address [facility] Co de Phone Number [facility] [address] from Last 3 Months or Most Recently Relevant to Health Maintenance Insurance [facility] STANDARD Care Teams Container Washer Machine Relationship Specialty Start Date End Date Carlton Mota CNP [address] [place] [phone] PCP - General Family Medicine 09/05/24
--- OUTSIDE RECORDS SUMMARY | 2024-10-15 18:40 | XMS_ITS | Encounter Summary ---
Author Organization [employer] Address [address] [facility] 7t [place] [address] Care Team Providers Care Personnel Representative Name Role Phone Carlton Mota CNP Primary Care Provider [phone] Reason for Visit * Reason Onset Date Comments Chart Prep 09/30/2024 Encounter Details Date Type Department Care Team (Late st Contact Info) Description 09/30/2024 Telephone [facility] [address] [place], [place] [phone] Carlton Mota CNP [address] [place] [phone] Chart Prep Social History Tobacco Use Types Packs/Day Years [...] Recorded Patient Health Questionnaire-2 Score 4 04/15/2024 Comments No Sex and Gender Information Value Date Recorded Sex Assigned at Female 06/19/2022 10:37 AM EDT Legal Sex Female 10:37 AM EDT Gender Identity Female 06/19/2022 10:37 AM EDT Sexual Orientation Straight 06/19/2022 10 :37 AM EDT documented as of this encounter Miscellaneous Notes * Telephone Encounter - Juliano Brown [place] - 09/30/2024 4:15 PM EST Chart Prep Labs: not applicable Images: not applicable Vaccines due: yes Hep B Flu Covid Referrals: pending appt Screenings: Alcohol/ Substance Use Overdue care gaps: SDOH, PHQ-9 documented in this encounter Plan of Treatment Upcoming Encounters Date Type Department Care Team (Late st Contact Info) Description 11/12/2024 3:15 PM EDT Office Visit [facility] [address] [place] [phone] Carlton Mota CNP [address] [place] [address] documented as of this encounter Visit Diagnoses Not on filedocumented in this encounter Additional Health Concerns Assessment Noted Time PHQ-9 Depression Total Score: 9 04/15/20 24 1:14 PM EDT documented as of this encounter Care Teams Personnel Representative Relationship Specialty Start Date End Date Carlton Mota CNP [address] [place] [phone] PCP - General Family Medicine 09/05/24 documented as of this encounter
--- OUTSIDE RECORDS SUMMARY | 2024-10-15 18:40 | XMS_ITS | Encounter Summary ---
Author Organization [employer] Address [address] [facility] 7t [place] [address] Care Team Providers Care Cosmetic Counselor Name Role Phone Kristie Billy MANAGEMENT EXPERT Primary Care Provider [phone] Sri Campa ETL SOFTWARE ENGINEER Primary Care Provider [phone] Carlton Moat CANCER REGISTRY MANAGER Primary Care Provider [phone] Encounter Details Date Type Department Care Team (Late st Contact Info) Description 02/29/2024 Orders Only [facility] [address] [place] [address] Nidhi Peoples CNM [address] [place] [address] Social History Tobacco Use Types Packs/Day Years Used Date Smoking Tobacco: Never Smokeless Tobacco: Never Alcohol Use Standard Drinks/Week Comments Never 0 (1 standard drink = 0.6 oz pur e alcohol) special occasions, manoj Depression Answer Date Recorded Patient Health Questionnaire-9 Score 12 10/22/2023 Patient Health Questionnaire-9 Score 12 10/22/2023 Last PHQ-9: Questionnaire Data Not on file 0 10/22/2023 Housing Stability Answer Date Recorded What is [...] Answer Date Recorded Patient Health Questionnaire-2 Score 3 10/22/2023 Comments No Sex and Gender Information Value [...] 11/12/2024 3:15 PM EDT Office Visit [facility] [address] [place] [address] Carlton Mota CNP [address] [place] [address] documented as of this encounter Procedures Procedure Name Priority Date/Time Associated Diagnosis Comments PAP SMEAR Routine 02/18/2024 12:00 AM EDT documented in this encounter Results * Pap Smear (02/18/2024 12:00 AM EDT) Swab us Nidhi [facility] CYTOLOGY ORDERABLES F inal Result [facility] [address] [place] [address] [phone] documented in this encounter Visit Diagnoses Not on filedocumented in this encounter Additional Health Concerns Assessment Noted Time PHQ-9 Depression Total Score: 12 024 10:38 AM EST documented as of this encounter Care Teams Cosmetic Counselor Relationship Specialty Start Date End Date Kristie Billy FNP [address] [place], [place] [phone] PCP - General Family Medicine 02/22/23 04/21/24 Sri Campa NP [address] [place], [place] [phone] PCP - General Family Medicine 04/22/24 09/04/24 Carlton Mota CNP [address] [place], [place] [phone] PCP - General Family Medicine 09/05/24 documented as of this encounter
[2024-10-18 01:34] LABS: TS Negative Control Passed; TS Panel A 0; TS Panel B 0; TS Positive Control Passed; TSpotTB Negative (Negative)
== END 2024-10-15 15:04 | disposition home or self-care (01) ==
LOC: HO.HHCL 15:03
PROVIDERS: Nurse Practitioner
DX: Z00.00 Encounter for general adult medical examination without abnormal findings (principal); Z11.1 Encounter for screening for respiratory tuberculosis
CPT/HCPCS: 36415; 80048; 83036; 84443; 85025; 86481

== ENCOUNTER 2025-02-17 15:38 | Outpatient (REF) | payer MEDICAID, SELFPAY ==
--- OUTSIDE RECORDS SUMMARY | 2025-02-17 16:17 | XMS_ITS | Encounter Summary ---
Author Organization [employer] Address [address] [facility] 7t [place] [address] Care Team Providers Care Life Agent Name Role Phone Kristie Billy SAFETY GLASS INSTALLER Primary Care Provider [phone] Sri Campa RETORT LOADER Primary Care Provider [phone] Carlton Mota ANESTHESIOLOGIST AND CRITICAL CARE Primary Care Provider + [phone] Encounter Details Date Type Department Care Team (Late st Contact Info) Description 02/29/2024 Orders Only [facility] MEDICINE [address] [place] [address] Nidhi Peoples CNM [address] [place], [place] [phone] Social History Tobacco Use Types Packs/Day Years [...] as of this encounter Plan of Treatment Not on file documented as of this encounter Procedures Procedure Name Priority Date/Time Associated Diagnosis Comments PAP SMEAR Routine 02/18/2024 12:00 AM EDT documented in this encounter Results * Pap Smear (02/18/2024 12:00 AM EDT) Swab us Nidhi Peoples [facility] CYTOLOGY ORDERABLES F inal Result [facility] [address] [place] [address] [phone] documented in this encounter Visit Diagnoses Not on filedocumented in this encounter Additional Health Concerns Assessment Noted Time PHQ-9 Depression Total Score: 12 024 10:38 AM EST documented as of this encounter Care Teams Life Agent Relationship Specialty Start Date End Date Kristie Billy FNP [address] [place] [address] PCP - General Family Medicine 02/22/23 04/21/24 Sri Campa NP [address] [place] [address] PCP - General Family Medicine 04/22/24 09/04/24 Carlton Mota CNP [address] [place] [address] PCP - General Family Medicine 09/05/24 documented as of this encounter
== END 2025-02-17 15:39 | disposition home or self-care (01) ==
LOC: HO.HHCL 15:38
DX: R53.83 Other fatigue (principal)
CPT/HCPCS: 36415; 82306

== ENCOUNTER 2025-05-01 10:18 | Outpatient (REF) | payer MEDICAID, SELFPAY ==
--- OUTSIDE RECORDS SUMMARY | 2025-05-01 09:00 | XMS_ITS | Encounter Summary ---
Author Organization [employer] Address 75 [facility] 7t [place] [address] Care Team Providers Care Notched Blade Loader Name Role Phone Carlton Mota CNP Primary Care Provider [phone] Reason for Referral * Imaging (Routine) - Pending Review Specialty Diagnoses / Procedures Referred By Negrito lopez Referred To Contact Diagnoses Chest pain, unspecified type Procedures Stress test with myocardial perfusion Carlton Mota CNP [address] [place] [address] Phone: tel: fax: [address] Phone: tel: fax: Referral ID Status Reason Start Date Expiration Date V isits Requested Visits Authorized [id number] Pending Review 05/01/2025 05/01/2026 3 3 * Imaging (Routine) - Pending Review Specialty Diagnoses / Procedures Referred By Negrito lopez Referred To Contact Radiology Diagnoses History of uterine fibroid Pelvic cyst in female Procedures Us Pelvis complete Carlton Mota CNP [address] [place] [address] Phone: tel: fax: [address] Phone: tel: fax: Referral ID Status Reason Start Date Expiration Date V isits Requested Visits Authorized [id number] Pending Review 05/01/2025 05/01/2026 1 1 * Imaging (Routine) - Pending Review Specialty Diagnoses / Procedures Referred By Negrito lopez Referred To Contact Radiology Diagnoses History of uterine fibroid Pelvic cyst in female Procedures US Pelvis Transvaginal Carlton Mota CNP [address] [place] [address] Phone: tel: fax: [address] Phone: tel: fax: Referral ID Status Reason Start Date Expiration Date V isits Requested Visits Authorized [id number] Pending Review 05/01/2025 05/01/2026 1 1 * Imaging (Routine) - Pending Review Specialty Diagnoses / Procedures Referred By Negrito lopez Referred To Contact Cardiology Diagnoses Chest pain, unspecified type Procedures Transthoracic Echo (TTE) Complete Carlton Mota CNP [address] [place] [address] Phone: tel: fax: [address] Phone: tel: fax: Referral ID Status Reason Start Date Expiration Date Visits Requested Visits Authorized [id number] Pending Review Perform Procedure 05/01/2025 05/01/2026 1 1 Reason for Visit * Reason Comments Follow-up left arm Numbness co ncerns, pelvic area ingrown? Encounter Details Date Type Department Care Team (Late st Contact Info) Description 05/01/2025 9:00 AM EDT Office Visit [facility] PEDS [address] [place] [address] Carlton Mota CNP [address] [place] [address] History of uterine fibroid (Primary Dx); Pelvic cyst in female; Chest pain, unspecified type Social History Tobacco Use Types Packs/Day Years [...] Sign Reading Time Taken Comments Blood Pressure 130/68 05/01/2025 9:06 AM EDT Pulse 60 05/01/2025 9:06 AM EDT Temperature 36.8 C (98.2 F) 05/01/2025 9:06 AM EDT Respiratory Rate 20 05/01/2025 9:06 AM EDT Oxygen Saturation 98% 05/01/2025 9:06 AM EDT Inhaled Oxygen Concentration - - Weight 76.2 kg (168 lb) 05/01/2025 9:06 AM EDT Height 165.1 cm (5' 5 ) 05/01/2025 9:06 AM EDT Body Mass Index 27.96 05/01/2025 9:06 AM EDT documented in this encounter Progress Notes * Carlton Mota CNP - 05/01/2025 9:00 AM EDT Subjective Patient ID: Ranjith Hercules is a 34 y.o. female who presents for acute visit. Interim History Pt had MANUFACTURING ENGINEER PAINT annual visit in 02/2025. Last pap Nil/HPV neg 02/2024. Small fibroid noted on pelvic ultrasound 02/2024. Repeat ultrasound 10/2024 showed essentially unchanged fibroid, right CL. Has tubal ligation. Recent labs Latest Reference Range & Units Most Recent Vitamin D 25-OH Total >30 ng/mL 47.2 02/17/25 15:42 Lab Results Component Value Date WBC 5.7 10/15/2024 HGB 14.1 10/15/2024 HCT 41.5 10/15/2024 MCV 91.0 10/15/2024 PLT 196 10/15/2024 Lab Results Component Value Date GLUCOSE 83 10/15/2024 NA 139 10/15/2024 K 4.0 10/15/2024 CO2 25 10/15/2024 CL 109 (H) 10/15/2024 BUN 11 10/15/2024 CREATININE 0.74 10/15/2024 Lab Results Component Value Date TSH 0.62 10/15/2024 Lab Results Component Value Date HGBA1C 5.2 10/15/2024 HPI Current concerns Left arm numbness - Reports tingling and numbness in both arms, especially during sleep and sometimes while talking on the phone. -denies any L sided weakness -denies any facial numbness, trouble swallowing or trouble with speech 2. Chest pain - Describes chest pain and sensation of chest hardness, occurring both at rest and once during exercise at the gym. Denies any injuries to arm, neck, or shoulder. Pt does not correlate chest pain with L arm numbness they occur separately. Denies history of asthma or breathing issues. -reports her anxiety is controlled, seeing psychiatrist who prescribes her meds. 3.New pelvic mass - Noted a new lump inside the vagina, sometimes visible and palpable, sometimes not. Lump is sometimes painful when touched, otherwise not painful. Describes the lump as hard but not extremely hard, sometimes squishy. Reports the lump has changed position, previously higher and now lower, denies any changes in growth or appearance. No vaginal bleeding, denies vaginal pain, denies dyspareunia. Denies history of ingrown hairs. Review of Systems see HPI Objective Vitals: 05/01/25 0906 BP: 130/68 Pulse: 60 Resp: 20 Temp: 98.2 ??F (36.8 ??C) SpO2: 98% Physical Exam Constitutional: Appearance: Normal appearance. She is normal weight. Cardiovascular: Rate and Rhythm: Normal rate and regular rhythm. Pulses: Normal pulses. Heart sounds: Normal heart sounds. No murmur heard. No friction rub. No gallop. Pulmonary: Effort: Pulmonary effort is normal. No respiratory distress. Breath sounds: Normal breath sounds. No wheezing or rales. Neurological: General: No focal deficit present. Mental Status: She is alert and oriented to person, place, and time. Cranial Nerves: No cranial nerve deficit. Sensory: No sensory deficit. Motor: No weakness. Coordination: Coordination normal. Gait: Gait normal. Deep Tendon Reflexes: Reflexes normal. Psychiatric: Mood and Affect: Mood normal. Behavior: Behavior normal. Thought Content: Thought content normal. Judgment: Judgment normal. Assessment/Plan Problem List Items Addressed This Visit History of uterine fibroid - Primary Relevant Orders US Pelvis Transvaginal Us Pelvis complete Other Visit Diagnoses Pelvic cyst in female Relevant Orders US Pelvis Transvaginal Us Pelvis complete - Order a pelvic ultrasound to evaluate the new palpable mass in the vaginal area. - Monitor the area for signs of infection, including redness, increased pain, or enlargement; report any such changes promptly. Chest pain, unspecified type Relevant Orders Transthoracic Echo (TTE) Complete ECG 12 lead (Completed) Stress test with myocardial perfusion Comprehensive Metabolic Panel Pt has no cardiac hx, she is asymptomatic today. VSS. EKG 62 bpm, regular rhythm, normal R wave progression, normal axis Plan to obtain echo and stress test to further evaluate CP Will refer to cardiology based on results. F/u in 2 months documented in this encounter Plan of Treatment Scheduled Orders Name Type Priority Associated Diagnoses Orde r Schedule Transthoracic Echo (TTE) Complete Echocardiography Routine Chest pain, unspecified type Expected: 05/01/2025 (Approximate), Expires: 05/01/2027 US Pelvis Transvaginal Imaging Routine History of uterine fibroid Pelvic cyst in female Expected: 05/01/2025, Expires: 05/01/2026 Us Pelvis complete Imaging Routine History of uterine fibroid Pelvic cyst in female Expected: 05/01/2025, Expires: 05/01/2026 Comprehensive Metabolic Panel Lab Routine Chest pain, unspecified type Expected: 05/01/2025 (Approximate), Expires: 05/01/2026 documented as of this encounter Procedures Procedure Name Priority Date/Time Associated Diagnosis Comments ECG 12-LEAD Routine 05/01/2025 11:06 AM EDT Chest pain, unspecified type documented in this encounter Results * ECG 12 lead (05/01/2025 11:06 AM EDT) Narrative Carlton Mota CNP - 05/01/2025 11:06 AM EDT 62 bpm, regular rhythm, normal R wave progression, normal axis Cosigned by Anaid Ma MD Carlton Mota CNP ECG ORDERABLES Final Res ult documented in this encounter Visit Diagnoses Diagnosis History of uterine fibroid- Primary Pelvic cyst in female Chest pain, unspecified type documented in this encounter Additional Health Concerns Assessment Noted Time PHQ-9 Depression Total Score: 4 10/15/19 25 2:21 PM EST documented as of this encounter Care Teams Notched Blade Loader Relationship Specialty Start Date End Date Carlton Mota CNP [address] [place] [phone] PCP - General Family Medicine 09/05/24 documented as of this encounter
--- OUTSIDE RECORDS SUMMARY | 2025-05-01 11:45 | XMS_ITS | Encounter Summary ---
Author Organization [employer] Address 75 [facility] 7t [place] [address] Care Team Providers Care Slubber Tender Name Role Phone Kristie Billy BAR MACHINE OPERATOR PRODUCTION Primary Care Provider [phone] Sri Campa WOMEN'S SOCCER COACH Primary Care Provider [phone] Calrton Mota SECURITIES COUNSELOR Primary Care Provider + [phone] Encounter Details Date Type Department Care Team (Late st Contact Info) Description 02/29/2024 Orders Only [facility] [facility] MEDICINE [address] [place] [address] Nidhi Peoples CNM [address] [place], [place] [phone] Social History Tobacco Use Types Packs/Day Years [...] your housing situation today? I have jaylen eilzalde 06/25/[address] you li [...] 12:00 AM EDT) Swab us Nidhi Peoples [facility] CYTOLOGY ORDERABLES F inal Result [facility] [address] [place] [address] [phone] documented in this encounter Visit Diagnoses Not on filedocumented in this encounter Additional Health Concerns Assessment Noted Time PHQ-9 Depression Total Score: 12 024 10:38 AM EST documented as of this encounter Care Teams Slubber Tender Relationship Specialty Start Date End Date Kristie Billy FNP [address] [place] [address] PCP - General Family Medicine 02/22/23 04/21/24 Sri Campa NP [address] [place] [address] PCP - General Family Medicine 04/22/24 09/04/24 Carlton Mota CNP [address] [place] [address] PCP - General Family Medicine 09/05/24 documented as of this encounter
--- OUTSIDE RECORDS SUMMARY | 2025-05-01 11:46 | XMS_ITS | Encounter Summary ---
Author Organization [employer] Address 75 [facility] [address] [place] [address] Care Team Providers Care Work Force Advisor Name Role Phone Carlton Mota CNP Primary Care Provider [phone] Reason for Visit * Reason Onset Date Comments chart prep 04/29/2025 Encounter Details Date Type Department Care Team ([facility] st Contact Info) Description 04/29/2025 Telephone [facility]S [address] [place], [place] [phone] Carlton Mota CNP [address] [place] [address] chart prep Social History Tobacco Use Types Packs/Day Years [...] encounter Miscellaneous Notes * Telephone Encounter - Ivory Byrnes [place] - 04/29/2025 3:39 PM EDT Chart Prep Labs: not applicable Images: not applicable Referrals: not applicable Vaccines due: Hep B and HPV Screenings: not applicable Overdue care gaps: SBIRT documented in this encounter Plan of Treatment Not on file documented as of this encounter Visit Diagnoses Not on filedocumented in this encounter Additional Health Concerns Assessment Noted Time PHQ-9 Depression Total Score: 4 10/15/19 25 2:21 PM EST documented as of this encounter Care Teams Work Force Advisor Relationship Specialty Start Date End Date Carlton Mota CNP [address] [place] [id number] PCP - General Family Medicine 09/05/24 documented as of this encounter
--- OUTSIDE RECORDS SUMMARY | 2025-05-01 11:46 | XMS_ITS | Encounter Summary ---
Author Organization [employer] Address [address] [facility] [address] [place] [address] Care Team Providers Care Sculpture Conservator Name Role Phone Carlton Mota CNP Primary Care Provider [phone] Encounter Details Date Type Department Care Team (Latest Contact Info) Description 05/01/2025 Travel Social History Tobacco Use Types Packs/Day [...] documented as of this encounter Care Teams Sculpture Conservator Relationship Specialty Start Date End Date Carlton Mota CNP [address] [place] [address] PCP - General Family Medicine 09/05/24 documented as of this encounter
--- OUTSIDE RECORDS SUMMARY | 2025-05-01 11:46 | XMS_ITS | Encounter Summary ---
Author Organization [employer] Address [address] [facility] [address] [place] [address] Care Team Providers Care Motor Vehicle Or Caravan Salesperson Name Role Phone Carlton Mota CNP Primary Care Provider [phone] Encounter Details Date Type Department Care Team (Latest Contact Info) Description 04/30/2025 Travel Social History Tobacco Use Types Packs/Day [...] documented as of this encounter Care Teams Motor Vehicle Or Caravan Salesperson Relationship Specialty Start Date End Date Carlton Mota CNP [address] [place] [address] PCP - General Family Medicine 09/05/24 documented as of this encounter
--- OUTSIDE RECORDS SUMMARY | 2025-05-01 11:46 | XMS_ITS | Encounter Summary ---
Author Organization [employer] Address [address] [facility] [address] [place] [address] Care Team Providers Care Harness Rigger Name Role Phone Carlton Mota CNP Primary Care Provider [phone] Reason for Visit * Reason Onset Date Comments Lab Orders 10/16/2024 Encounter Details Date Type Department Care Team (Late st Contact Info) Description 10/16/2024 Telephone [facility] MEDICINE [address] [place], [place] [phone] Carlton Mota CNP [address] [place] [address] Lab Orders Social History Tobacco Use Types Packs/Day Years [...] encounter Miscellaneous Notes * Telephone Encounter - Italo Cristofer - 10/16/2024 10:58 AM EST [facility] ([facility]) is calling in requesting a new Pelvis and Transvaginal Ultrasound to [facility] to be Faxed to [phone]. documented in this encounter Plan of Treatment Not on file documented as of this encounter Visit Diagnoses Not on filedocumented in this encounter Additional Health Concerns Assessment Noted Time PHQ-9 Depression Total Score: 4 10/15/19 25 2:21 PM EST documented as of this encounter Care Teams Harness Rigger Relationship Specialty Start Date End Date Carlton Mota CNP [address] [place] [id number] PCP - General Family Medicine 09/05/24 documented as of this encounter
--- OUTSIDE RECORDS SUMMARY | 2025-05-01 11:46 | XMS_ITS | Clinical Summary ---
Author Organization [employer] Address [address] [facility] 7[address] [place] [address] Care Team Providers Care Hot Sealing Machine Operator Name Role Phone Carlton Mota CNP Primary Care Provider [phone] Allergies No known active allergies Medications * This document contains information received from the source organization and may not represent a complete record from that organization. hydrOXYzine pamoate (Vistaril) 25 MG capsuleIndicatio ns:Chronic migraine without aura without status migrainosus, not intractable Take 1 capsule (25 mg) by mouth every 8 (eight) hours if needed for anxiety. 30 capsule 1 10/15/19 25 026 Active aspirin-acetamin ophen-caffeine (Excedrin Migraine) 250-250-65 MG tabletIndication s:Chronic migraine without aura without status migrainosus, not intractable Take 2 tablets by mouth if needed each day for headaches. 90 tablet 1 10/15/19 25 Active cloNIDine (Catapres) 0.1 MG tablet Take 0.1 mg by mouth See administration instructions. 02/03/20 25 Active sertraline (Zoloft) 50 MG tablet Take 50 mg by mouth Once per day. 01/20/20 25 Active traZODone (Desyrel) 50 MG tablet Take 50 mg by mouth if needed at bedtime for sleep. 02/03/20 25 Active influenza vac subunit quadrivalent (Flucelvax Quadrivalent) 0.5 ML injection inject 0.5 milliliter by intramuscular route once 07/22/20 20 Active ondansetron (Zofran) 4 MG tablet TOME 1 TABLETA POR V A ORAL DOS VECES AL D A CUANDO SEA NECESARIO PARA LAS N USEAS Y V MITOS 04/03/20 25 Active Active Problems Problem Noted Date Diagnosed Date History of uterine fibroid 10/15/2024 Assessment & Plan (10/15/2024 4:46 PM EST): Will obtain repeat pelvic us to reevaluate size of fibroid Also provided ORAL SURGEON referral for removal consultation Based on exam, [...] Encounters Date Type Department Care Team Description 05/01/2025 9:00 AM EDT Office Visit [facility] [address] [place] [address] Carlton Mota CNP History of uterine fibroid (Primary Dx); Pelvic cyst in female; Chest pain, unspecified type 05/01/2025 Travel 04/30/2025 Travel 04/29/2025 Telephone [facility] [address] [place] [address] Carlton Mota CNP chart prep 02/18/2025 Results Follow-Up [address] [address] Carlton Mota CNP Vitamin D, 25-Hydroxy, Total, Immunoassay 02/17/2025 3:15 PM EDT Procedure Visit [address] [address] Nidhi Peoples CNM Fibroid (Primary Dx); Tiredness 02/17/2025 Travel 02/16/2025 Telephone [facility] [address] [place] [address] Carlton Mota CNP Chart Prep 02/10/2025 Travel 01/29/2025 [address] [place] [address] Monika Esquivel MA CHARTPREP from Last 3 Months Immunizations Immunization Administration Dates Next Due Hep B, adult 10/22/2023,02/22/2023 Pfizer Covid-19 Vaccine 12+ carlie-sucrose (Amaya Rebekah ap) 01/11/2021,12/21/2020 Tdap 10/22/2023 Family History Medical History Relation Name Comments Arthritis Maternal Grandfather Fide Grigsby Diabetes Maternal Grandfather Fide Grigsby Diabetes Maternal Grandmother Fide Grigsby Arthritis Mother Emma Justine Diabetes Mother Emma Justine epilepsy Mother Emma Justine Asthma Son Jackie Robertson Intellectual Disability Son Jackie Robertson Relation Name Status Comments Maternal Grandfather Fide Grigsby Maternal Grandmother Fide Grigsby Mother Emma Fletcher Son Jackie Robertson Social History Tobacco [...] Q2 Not on file 10/03/2024 Comments No Intention Date Recorded No desire to become (finding) 0 02/17/2025 Sex and Gender Information Value Date Recorded [...] Mass Index 27.96 05/01/2025 9:06 AM EDT Plan of Treatment Health Maintenance Due Date Last Done Comments HPV Vaccines (1 - 3-dose series) 2007 Hepatitis B Vaccines (3 of 3 - 19+ 3-dose series) 12/17/2023 10/22/2023, 02/22/2023 COVID-19 Vaccine (4 - 2024-2 6 season) 2025 11/15/2021, 01/11/2021, 12/21/2020 Influenza Vaccine (#1) 2025 SDOH Screening 10/03/2025 10/03/2024 Disability Screening 10/12/2025 10/12/2024 Depression Screening 10/15/2025 10/15/2024, 10/15/2024 Family Planning (PISQ) 02/17/2026 02/17/2025 Tobacco Screening 02/17/2026 02/17/2025 Alcohol/Substance Use Screening 05/01/2026 05/01/2025 Cervical Cancer Screening 02/17/2029 HPV/Cotest 02/17/2029 02/18/2024 [...] patient's age to complete this topic Meningococcal B Vaccine Aged Out No l onger eligible based on patient's age to complete this topic Meningococcal Vaccine Aged Out No marcela elizabeth eligible based on patient's age to complete this topic Pneumococcal Vaccine: Pediatrics (0 to 5 Years) and At-Risk Patients (6 to 49) Years Aged Out No longer eligible b ased [...] 11:06 AM EDT Chest pain, unspecified type VITAMIN D,25-OH,TOTAL,IA Routine 02/17/2025 3:42 PM EDT Tiredness HPV MRNA E6/E7 REFLEX TO HPV 16, 18/45 Routine 02/18/2024 9:50 AM EDT PAP SMEAR Routine 02/18/2024 12:00 AM EDT ZZZ HISTORICAL HEPATITIS C AB W/REFL TO HCV RNA, QN, PCR Routine 08/16/2020 2:20 PM EST HIV 1/2 ANTIGEN/ANTIBODY, FOURTH GENERATION W/RFL Routine 08/16/2020 2:20 PM EST from Last 3 Months or Most Recently Relevant to Health Maintenance Results * ECG 12 lead (05/01/2025 11:06 AM EDT) Narrative Mota CarltonNIKKI - 05/01/2025 11:06 AM EDT 62 bpm, regular rhythm, normal R wave progression, normal axis Cosigned by Anaid Ma MD [facility] ECG ORDERABLES Final Res ult * Vitamin D, 25-Hydroxy, Total, Immunoassay (02/17/2025 3:42 PM EDT) Vitamin D 25-OH Total 47.2 >30 ng/mL [facility] Comment: Health Based Reference Values*< 20 ng/mL Pfbckhibj81-24 ng/mL Insufficient> 30 ng/mL Sufficient*Roque ATKINSON. N Engl J Med. 2007;357:266-280There is no well-established upper level of normal vitamin Dlevels. Some laboratories use 50 ng/mL as an upper limit ofnormal. However, toxicity is patient-dependent and may occurat any level. Careful correlation with the patient'spresentation is necessary and, if there is concern forvitamin D toxicity, treatment should be consideredirrespective of the serum level.Care must be taken in interpreting Vitamin D results fromdifferent laboratories and methodologies. Published datademonstrated that results from patients undergoinghemodialysis may show a negative bias when tested withvarious automated 25-OH vitamin D assays when compared toLC-MS/MS.When testing samples from patients whose predominant form ofVitamin D is Vitamin D2, such as patients receiving VitaminD2 supplementation, results that are subtherapeutic shouldbe confirmed with another method such as LC-MS/MS. Blood Venous blood specimen / Unknown 02/17/2025 3:42 PM EDT 02/17/2025 5:57 PM EDT [facility] LAB BLOOD ORDERABLES Tiara valladares Result [facility] [address] [place] [phone] * HPV mRNA E6/E7 w/Reflex to HPV Genotypes 16, 18/45 (02/18/2024 9:50 AM EDT) HPV nRNA E6/E7 Not Detected [facility] Comment:Methodology: Transcr iption-Mediated AmplificationThis assay detects E6/E7 viral messenger RNA (mRNA) from 14high-risk HPV types(16,18,31,33,35,39,45,51,52,56,58,59,66,68).Cervical sources are required for HPV testing.If a vaginal source from a patient who has had atotal hysterectomy with removal of cervix wassubmitted, please contact the testing laboratoryfor alternative testing options.For additional information, please refer tohttp://education.Stitch.es/faq/TCO342z6(This link if provided for information/educational purposes only.)THIS TEST PERFORMED AT:[facility] [address] [phone] DIRECTOR: KIMMY MA MD HPV mRNA E6/E7 [facility] HPV 16 RNA [facility] HPV 18/45 RNA [facility] 02/18/2024 9:50 AM EDT 02/26/2024 1:43 PM EDT [facility] LAB CYTOLOGY ORDERABLES F inal Result Performing Organization Address [facility]/ZIP Co de Phone Number [facility] [address] [place] [address] [phone] * Pap Smear (02/18/2024 12:00 AM EDT) [facility]ab [facility] ORDERABLES F inal Result Performing Organization Address [facility]/ZIP Co de Phone Number [facility] [address] [place] [address] [phone] * HEPATITIS C AB W/REFL TO HCV RNA, QN, PCR (08/16/2020 2:20 PM EST) HEPATITIS C ANTIBODY NON-REACT АЛЕКСАНДР NON-REACT АЛЕКСАНДР [facility] INDEX 0.01 <1.00 [facility] Comment: HCV antibody was non-reactive. There is no laboratory evidence of HCV infection. In most cases, no further action is required. However, if recent HCV exposure is suspected, a test for HCV RNA (test code 68036) is suggested. For additional information please refer to http://[employer].Stitch.es/faq/JVX72j9 (This link is being provided for informational/ educational purposes only.) 08/16/2020 2:20 PM EST Historical Provider HISTORICAL/NON ORDERABLE LABS Final Result [facility] [address] * HIV 1/2 ANTIGEN/ANTIBODY,FOURTH GENERATION W/RFL (08/16/2020 2:20 PM EST) HIV-1/2 ANTIGEN AND ANTIBODIES, 4TH GENERATION W/ REFLEX NON-REACT АЛЕКСАНДР NON-REACT АЛЕКСАНДР [facility] Comment: HIV-1 antigen and HIV-1/HIV-2 antibodies were not detected. There is no laboratory evidence of HIV infection. PLEASE NOTE: This information has been disclosed to you from records whose confidentiality may be protected by state law. If your state requires such protection, then the state law prohibits you from making any further disclosure of the information without the specific written consent of the person to whom it pertains, or as otherwise permitted by law. A general authorization for the release of medical or other information is NOT sufficient for this purpose. For additional information please refer to http://[employer].Stitch.es/faq/RRZ830 (This link is being provided for informational/ educational purposes only.) The performance of this assay has not been clinically validated in patients less than 2 years old. 08/16/2020 2:20 PM EST us Historical Provider LAB BLOOD ORDERABLES Tiara valladares Result [facility] [address] from Last 3 Months or Most Recently Relevant to Health Maintenance Insurance [facility] C3 Care Teams Hot Sealing Machine Operator Relationship Specialty Start Date End Date Carlton Mota CNP [address] [place] [address] [phone] PCP - General Family Medicine 09/05/24
[2025-05-01 15:16] LABS: Alanine Aminotransferase 16 U/L (0-31); Albumin Level 4.5 g/dL (3.5-5.0); Alkaline Phosphatase 48 U/L (39-117); Anion Gap 11 (12-20); Aspartate Amino Transferase 25 U/L (5-31); Blood Urea Nitrogen 8 mg/dL (9-16); Calcium 9.2 mg/dL (8.4-10.2); Carbon Dioxide 25 mmol/L (22-29); Chloride 108 mmol/L (96-108); Estimated Glomerular Filt Rate > 60; Potassium 4.5 mmol/L (3.3-5.1); Sodium 139 mmol/L (135-145); Total Protein 7.1 g/dL (6.5-8.0)
== END 2025-05-01 10:19 | disposition home or self-care (01) ==
LOC: HO.CHCLDS 10:18
DX: R07.9 Chest pain, unspecified (principal)
CPT/HCPCS: 36415; 80053

== ENCOUNTER 2025-06-12 10:30 | Outpatient (REF) | payer MEDICAID, SELFPAY ==
--- NOTE | ~2025-06-12 | US_ITS ---
EXAMINATION: US PELVIS TRANSABDOMINAL AND TRANSVAGINAL HISTORY: H/O UTERINE FIBROID, PELVIC CYST COMPARISON: There are no prior studies available for comparison. TECHNIQUE: Transabdominal and endovaginal real-time 2D donnelly-scale ultrasound was performed. FINDINGS: Uterus: The uterus is normal in size, measuring 9.2 x 3.9 x 5.5 cm. Myometrium has a normal echotexture. There is a left-sided fibroid measuring 8 x 9 x 9 mm. Endometrium: The endometrial stripe measures 4 mm in thickness. Right ovary: The right ovary measures 4.2 x 1.8 x 4.2 cm. The right ovary is normal in size and echotexture. There is a 1.9 x 1.3 x 1.6 cm cyst versus follicle. Left ovary: The left ovary measures 3.4 x 2.0 x 2.1 cm. There is a 1.5 x 1.1 x 1.7 cm cystic focus with low-level internal echoes which may represent a hemorrhagic cyst. Pelvic fluid: none. Imaging of a palpable abnormality in the left groin demonstrates a normal-appearing subcentimeter lymph nodes and a 2.6 x 0.9 x 1.4 cm hypoechoic area which could represent a hernia. US/US pelvic and transvaginal IMPRESSION: 1. 9 mm left uterine fibroid. 2. 1.5 x 1.1 x 1.7 cm probable left ovarian hemorrhagic cyst. 3. 2.6 x 0.9 x 1.4 cm hypoechoic area in the left groin which may represent a hernia. Clinical correlation is recommended. Electronically signed by: Jacobo Bland MD 06/12/2025 12:27 PM EDT
--- OUTSIDE RECORDS SUMMARY | 2025-06-12 12:05 | XMS_ITS | Encounter Summary ---
Author Organization [employer] Address [address] [facility] 7t [place] [address] Care Team Providers Care Medical Device Sales Name Role Phone Carlton Mota CNP Primary Care Provider [phone] Reason for Visit * Reason Onset Date Comments Lab Orders 10/16/2024 Encounter Details Date Type Department Care Team (Late st Contact Info) Description 10/16/2024 Telephone [facility] [address] [place] [address] Carlton Mota CNP [address] [place], [place] [phone] Lab Orders Social History Tobacco Use Types [...] 10/16/2024 10:58 AM EST [facility] ([facility]) is calling in requesting a new Pelvis and Transvaginal Ultrasound to [facility] to be Faxed to [phone]. documented in this encounter Plan of Treatment Not on file documented as of this encounter Visit Diagnoses Not on filedocumented in this encounter Additional Health Concerns Assessment Noted Time PHQ-9 Depression Total Score: 4 10/15/19 25 2:21 PM EST documented as of this encounter Care Teams Medical Device Sales Relationship Specialty Start Date End Date Carlton Mota CNP PCP - General Family Medicine 09/05/24 documented as of this encounter
--- OUTSIDE RECORDS SUMMARY | 2025-06-12 12:05 | XMS_ITS | Encounter Summary ---
Author Organization [employer] Address [address] [facility] [address]t [place] [address] Care Team Providers Care Machine Plate Stacker Name Role Phone Kristie Billy RETOUCHING OPERATOR Primary Care Provider [phone] Sri Campa FINANCIAL RESERVE CLERK Primary Care Provider [phone] Carlton Mota CARDIAC REHABILITATION PROGRAM DIRECTOR Primary Care Provider [phone] Encounter Details Date Type Department Care Team (Late st Contact Info) Description 02/29/2024 Orders Only [facility] [address] [place] [address] Nidhi Peoples CNM [address] [place], [place] [phone] Social History Tobacco Use Types Packs/Day Years [...] 12:00 AM EDT) Swab us Nidhi Peoples [facility] CYTOLOGY ORDERABLES F inal Result [facility] [address] [place] [address] [phone] documented in this encounter Visit Diagnoses Not on filedocumented in this encounter Additional Health Concerns Assessment Noted Time PHQ-9 Depression Total Score: 12 024 10:38 AM EST documented as of this encounter Care Teams Machine Plate Stacker Relationship Specialty Start Date End Date Kristie Billy FNP [address] [place] [address] PCP - General Family Medicine 02/22/23 04/21/24 Sri Campa NP [address] [place] [address] PCP - General Family Medicine 04/22/24 09/04/24 Carlton Mota CNP [address] [place] [address] PCP - General Family Medicine 09/05/24 documented as of this encounter
--- OUTSIDE RECORDS SUMMARY | 2025-06-12 12:05 | XMS_ITS | Clinical Summary ---
Author Organization [employer] Address [address] [facility] 7t [place] [address] Care Team Providers Care Felt Coverer Name Role Phone Carlton Mota CNP Primary Care Provider [phone] Allergies No known active allergies Medications * [...] to reevaluate size of fibroid Also provided TECH BRAZER TESTER referral for removal consultation Based on exam, the mass she feels when she coughs may be related to scar tissue under her abdominoplasty incision F/u in 1 month or sooner for this issue Heat intolerance 10/15/2024 Assessment & Plan (10/15/2024 4:42 PM EST): No known family hx of thyroid disorders Will obtain routine blood work including thyroid panel- see orders Moderate episode of recurren t major depressive disorder (CMS/HCC) 04/15/2024 Anxiety 04/15/2024 Assessment & Plan (10/15/2024 [...] Description 05/01/2025 9:00 AM EDT Office Visit [facility] [address] [place] [address] Carlton Mota CNP History of uterine fibroid (Primary Dx); Pelvic cyst in female; Chest pain, unspecified type 05/01/2025 Travel 04/30/2025 Travel 04/29/2025 Telephone [facility] [address] [place] [address] Carlton Mota CNP chart prep from Last 3 Months Immunizations Immunization Administration Dates Next Due Hep B, adult 10/22/2023,02/22/2023 Pfizer Covid-19 Vaccine 12+ carlie-sucrose (Amaya C ap) 01/11/2021,12/21/2020 Tdap 10/22/2023 Family History Medical History Relation Name Comments Arthritis Maternal Grandfather Fide Grigsby Diabetes Maternal Grandfather Fide Grigsby Diabetes Maternal Grandmother Fide Grigsby Arthritis Mother Emma Fletcher Diabetes Mother Emma Fletcher epilepsy Mother Emma Reyesdejo Asthma Son Jackie Robertson Intellectual Disability Son [...] 3-dose series) 12/17/2023 10/22/2023, 02/22/2023 COVID-19 Vaccine ( - 2024-2 6 season) 2025 11/15/2021, 01/11/2021, [...] 11:06 AM EDT Chest pain, unspecified type COMPREHENSIVE METABOLIC PANEL Routine 05/01/2025 10:20 AM EDT Chest pain, unspecified type HPV MRNA E6/E7 REFLEX TO HPV 16, [...] ECG 12 lead (05/01/2025 11:06 AM EDT) Carlton Maria CNP - 05/01/2025 11:06 AM EDT 62 bpm, regular rhythm, normal R wave progression, normal axis Cosigned by Anaid Ma MD Carlton Mota CNP ECG ORDERABLES Final Res ult * (ABNORMAL) Comprehensive Metabolic Panel (05/01/2025 10:20 AM EDT) Sodium 139 135 - 145 mmol/L [facility] Potassium 4.5 3.3 - 5.1 mmol/L [facility] Chloride 108 96 - 108 mmol/L [facility] Carbon Dioxide 25 22 - 29 mmol/L [facility] Anion Gap 11(L) 12 - 20 [facility] Urea Nitrogen (BUN) 8(L) 9 - 16 mg/dL [facility] Creatinine, Serum 0.82 0.5 - 1.4 mg/dL [facility] Estimated Glomerular Filt Rate >60 [facility] Comment:Chronic Kidney Disea se: Estimated GFR < 60 mL/min/1.35r2Lyzgqu Kidney Disease: Estimated GFR < 15 mL/min/1.73m2 Glucose 87 60 - 115 mg/dL [facility] Calcium 9.2 8.4 - 10.2 mg/dL [facility] Bilirubin, Total 0.6 0.0 - 1.0 mg/dL [facility] Aspartate Amino Transferase 25 5 - 31 U/L [facility] Alanine Aminotransferase 16 0 - 31 U/L [facility] Total Protein 7.1 6.5 - 8.0 g/dL [facility] Albumin Level 4.5 3.5 - 5.0 g/dL [facility] Alkaline Phosphatase 48 39 - 117 U/L [facility] Blood Venous blood specimen / Unknown 05/01/2025 10:20 AM EDT 05/01/2025 2:18 PM EDT Brodyclaude Mota [facility] BLOOD ORDERABLES Tiara l Result [facility] [address] [place] [phone] [phone] * HPV mRNA E6/E7 w/Reflex to HPV Genotypes 16, 18/45 (02/18/2024 9:50 AM EDT) HPV nRNA E6/E7 Not Detected [facility] Comment:Methodology: Transcr iption-Mediated AmplificationThis assay detects E6/E7 viral messenger RNA (mRNA) from 14high-risk HPV types(16,18,31,33,35,39,45,51,52,56,58,59,66,68).Cervical sources are required for HPV testing.If a vaginal source from a patient who has had atotal hysterectomy with removal of cervix wassubmitted, please contact the testing laboratoryfor alternative testing options.For additional information, please refer tohttp://education.[facility]/faq/QEY477t2(This link if provided for information/educational purposes only.)THIS TEST PERFORMED AT:[facility] [address] [phone] DIRECTOR: KIMMY MA MD HPV mRNA E6/E7 [facility] HPV 16 RNA [facility] HPV 18/45 RNA [facility] 02/18/2024 9:50 AM EDT 02/26/2024 1:43 PM EDT [facility] LAB CYTOLOGY ORDERABLES F inal Result Performing Organization Address City/[facility]/ZIP Co de Phone Number [facility] [address] [place] [phone] * Pap Smear (02/18/2024 12:00 AM EDT) Swab [facility] LAB CYTOLOGY ORDERABLES F inal Result Performing Organization Address [facility] de Phone Number [facility] [address] [place] [phone] * HEPATITIS C AB W/REFL TO HCV RNA, QN, PCR (08/16/2020 2:20 PM EST) HEPATITIS C ANTIBODY NON-REACT АЛЕКСАНДР NON-REACT АЛЕКСАНДР [facility] INDEX 0.01 <1.00 [facility] Comment: HCV antibody was non-reactive. There is no laboratory evidence of HCV infection. In most cases, no further action is required. However, if recent HCV exposure is suspected, a test for HCV RNA (test code 53862) is suggested. For additional information please refer to http://[employer]/faq/GWB54r1 (This link is being provided for informational/ educational purposes only.) 08/16/2020 2:20 PM EST Historical Provider HISTORICAL/NON ORDERABLE LABS Final Result Performing Organization Address [facility] Co de Phone Number [facility] [address] * HIV 1/2 ANTIGEN/ANTIBODY,FOURTH GENERATION W/RFL (08/16/2020 2:20 PM EST) HIV-1/2 ANTIGEN AND ANTIBODIES, 4TH GENERATION W/ REFLEX NON-REACT АЛЕКСАНДР NON-REACT АЛЕКСАНДР [facility] Comment: HIV-1 antigen and [...] purpose. For additional information please refer to http://Zounds[facility]/faq/CVK129 (This link is being provided for informational/ educational purposes only.) The performance of this assay has not been clinically validated in patients less than 2 years old. 08/16/2020 2:20 PM EST us Historical Provider LAB BLOOD ORDERABLES Tiara l Result Performing Organization Address [facility] Co de Phone Number [facility] [address] from Last 3 Months or Most Recently Relevant to Health Maintenance [facility] Care Teams Felt Coverer Relationship Specialty Start Date End Date Carlton Mota CNP PCP - General Family Medicine 09/05/24
== END 2025-06-12 10:31 | disposition home or self-care (01) ==
LOC: HO.US 10:30
DX: N94.89 Other specified conditions associated with female genital organs and menstrual cycle (principal); Z86.018 Personal history of other benign neoplasm
CPT/HCPCS: 76830; 76856

== ENCOUNTER → 2025-06-12 10:32 | Outpatient (BNV) | payer MEDICAID, SELFPAY | PROVIDERS: Visit Provider Radiology Diagnostic Radiology | DX: D25.9 Leiomyoma of uterus, unspecified (principal); N83.12 Corpus luteum cyst of left ovary | CPT/HCPCS: 76830; 76856 ==

== ENCOUNTER → 2025-06-16 08:52 | Outpatient (REF) | payer MEDICAID, SELFPAY ==
--- NOTE | 2025-06-16 08:55 | CA_ITS ---
Transthoracic Echocardiogram Patient (Last, First, Middle): Ranjith Nava, Gender: Female Date of : 1990 Age: 34 Procedure Date: 06/16/2025 Procedure Type: Transthoracic Echocardiogram Location: OP Height: 165.1 cm Weight: 73.94 kg BSA: 1.81 m2 Heart Rate: bpm BP: 102 / 50 mmHg Joint Cutter Machine: TO Referring MD: Carlton Mota SEO MANAGER Symptoms: INTERMITTENT CP Study Quality: Adequate with contrast ECG Rhythm: Sinus Conclusions: - The left ventricular systolic function is normal. The calculated ejection fraction is 57% by biplane method. - There is an interatrial septal aneurysm seen bowing to the right. There is no evidence of interatrial shunt by color Doppler. - No obvious valvular pathology seen on this study. - Prominent left ventricular trabeculation. - Recommend cardiac MRI to evaluate for LV non-compaction. Findings Procedure Information Contrast agent, definity, is being given per protocol without apparent complications. Left Ventricle Normal left ventricular cavity size. There is normal left ventricular wall thickness. The left ventricular systolic function is normal. The calculated ejection fraction is 57% by biplane method. There is no evidence of regional wall motion abnormalities. Diastolic function is normal for age. Prominent left ventricular trabeculation. Cannot exclude non-compaction. LV peak GLS 18.2%. Right Ventricle Mildly increased right ventricular cavity size. There is normal right ventricular systolic function. Atria Both atria are normal in size. There is an interatrial septal aneurysm seen bowing to the right. There is no evidence of interatrial shunt by color Doppler. Aortic Valve There is a normal trileaflet aortic valve. There is no aortic valve stenosis. There is trace (trivial) aortic valve regurgitation. Mitral Valve The mitral valve appears normal. There is trace mitral valve regurgitation. There is no mitral valve stenosis. Pulmonic Valve There is trace pulmonic valve regurgitation. Tricuspid Valve There is trace tricuspid valve regurgitation. There is no evidence of pulmonary hypertension. Great Vessels The asc aorta is normal in size. Venous The inferior vena cava is normal in size and collapses greater than 50% with inspiration. Pericardium/Pleural There is no evidence of pericardial effusion. Prior Study Comparison No prior study available for comparison. Recommendations, Care & Conclusions No obvious valvular pathology seen on this study. Measurements 2D Linear Measurements IVSd: 0.76 0.6-0.9/0.6-1.0 cm LVIDd: 5.09 3.9-5.3/4.2-5.9 cm LVIDd Index: 2.81 2.4-3.2/2.2-3.1 cm/m2 LVIDs: 3.24 2.0-3.6 cm LVPWd: 0.78 0.7-1.1 cm LA Diam: 3.40 2.7-3.8/3.0-4.0 cm LAIDs Index: 1.88 1.5-2.3 cm/m2 LV Mass: 165.12 67-162/88-224 g LV Mass Index: 91.23 43-95/49-115 g/m2 LVOT Diam: 2.10 3.0+(-)1.3 cm 2D Systolic Function EF 4C: 55.40 >55% EF 2C: 59.00 >55% EF BiP: 57.10 >55% Mitral Valve MV Pk E: 0.80 MV PK A: 0.46 MV Decel Time: 229.00 E/A: 1.70 E'Lateral: 11.20 E'Medial: 8.05 E/E' Med: 10.00 E/E' Lat: 7.20 PHT: 67.00 MVA PHT: 3.28 Decel [place]: 3.50 Aortic Valve AoV Pk Floyd: 1.29 AoV Mn Floyd: 0.85 AoV VTI: 0.27 AoV Pk Grad: 7.00 Aov Mn Grad: 3.00 SULMA Cont.VTI: 2.87 LVOT LVOT Pk Floyd: 1.14 LVOT Mn Floyd: 0.75 LVOT VTI: 0.23 LVOT Pk Grad: 5.00 LVOT Mn Grad: 3.00 LVOT Diam: 2.10 LVOT Area: 3.46 Diastolic Function MV Pk E: 0.80 MV Pk A: 0.46 E/A: 1.70 E'Medial: 8.05 E/E' Med: 10.00 E' Laterial: 11.20 E/E' Lat: 7.20 Right Ventricle TAPSE (mm): 28.20 TVS' Floyd: 13.70 Tricuspid Valve TR Pk Floyd: 1.98 TR Pk Grad: 16.00 RA Press: 3.00 RVSP: 19.00 Great Vessels Aorta Sinus of Valsalva: 2.69 2.0-3.5 cm Ao Asc: 2.50 2.1-3.4 cm Updated in Other Vendor System with Status of Final Fede Collier MD electronically signed on 06/17/2025 10:47:08 AM with status of Final
--- OUTSIDE RECORDS SUMMARY | 2025-06-16 09:43 | XMS_ITS | Encounter Summary ---
Author Organization [employer] Address [address] [facility] 7t [place] [address] Care Team Providers Care Field Crop Harvest Contractor Name Role Phone Kristie Billy BOARD WINDER Primary Care Provider [phone] Sri Campa INTERNAL INVESTIGATOR Primary Care Provider [phone] Carlton Mota WARE FINISHER Primary Care Provider [phone] Encounter Details Date Type Department Care Team (Late st Contact Info) Description 02/29/2024 Orders Only [facility] [address] [place] [address] Nidhi Peoples CNM [address] [place], [place] [phone] Social History Tobacco Use Types Packs/Day Years [...] 12:00 AM EDT) Swab us Nidhi Peoples [facility] CYTOLOGY ORDERABLES F inal Result [facility] [address] [place] [address] [phone] documented in this encounter Visit Diagnoses Not on filedocumented in this encounter Additional Health Concerns Assessment Noted Time PHQ-9 Depression Total Score: 12 024 10:38 AM EST documented as of this encounter Care Teams Field Crop Harvest Contractor Relationship Specialty Start Date End Date Kristie Billy FNP [address] [place] [address] PCP - General Family Medicine 02/22/23 04/21/24 Sri Campa NP [address] [place] [address] PCP - General Family Medicine 04/22/24 09/04/24 Carlton Mota CNP [address] [place] [address] PCP - General Family Medicine 09/05/24 documented as of this encounter
--- OUTSIDE RECORDS SUMMARY | 2025-06-16 09:43 | XMS_ITS | Encounter Summary ---
Author Organization [employer] Address [address] [place] [address] 7 [place] [address] Care Team Providers Care Dishwashing Machine Operator Name Role Phone Carlton Mota CNP Primary Care Provider [phone] Reason for Referral * Imaging (Routine) - Authorized Specialty Diagnoses / Procedures Referred By Negrito t Referred To Contact Radiology Diagnoses Unilateral inguinal hernia without obstruction or gangrene, recurrence not specified Procedures CT Abdomen Pelvis w/o Contrast Carlton Mota CNP [address] [place] [address] Phone: tel: fax: [address] Phone: tel: fax: Referral ID Status Reason Start Date Expiration Date V isits Requested Visits Authorized [id number] Authorized 06/15/2025 06/15/2026 1 1 * Consultation (Routine) - Pending Review Specialty Diagnoses / Procedures Referred By Contpinky t Referred To Contact General Surgery Diagnoses Unilateral inguinal hernia without obstruction or gangrene, recurrence not specified Carlton Mota CNP [address] [place] [address] Phone: tel: fax: Referral ID Status Reason Start Date Expiration Date Visits Requested Visits Authorized [id number] Pending Review Specialty Services Required 06/15/2026 1 1 Reason for Visit * Reason Onset Date Comments Results 06/15/2025 Encounter Details Date Type Department Care Team (Latest Contact Info) Description 06/15/2025 Results Follow-Up [facility] [address] [place] [address] Carlton Mota, NIKKI [address] [place] [address] US Pelvis Transvaginal Social History Tobacco Use Types Packs/Day Years [...] encounter Miscellaneous Notes * Telephone Encounter - Estefany Aogsto RN - 06/15/2025 1:46 PM EDT TC to pt with S time clerk. No answer. VM left instructing pt to return call to office or responding to Milyoni message * Telephone Encounter - Estefany Agosto RN - 06/15/2025 1:45 PM EDT ----- Message from Carlton Mota sent at 06/15/2025 10:03 AM EDT ----- Please call and let patient know Pelvic US did confirm presence of uterine fibroid, there is also apossible hernia in her left groin area. I can refer her to PAPER TUBE MACHINE OPERATOR surgery for further evaluation/possible removal of fibroid and I am ordering a CT abdominal/pelvis to confirm presence of hernia in her left groin and referring her to general surgery for further eval. Let me know if any questions, thank you ----- Message ----- From: Javi Everett Results In Sent: 06/12/2025 12:31 PM EDT To: Carlton Mota CNP * Result Encounter Note - Carlton Mota CNP - 06/15/2025 10:03 AM EDT Please call and let patient know Pelvic US did confirm presence of uterine fibroid, there is also apossible hernia in her left groin area. I can refer her to PAPER TUBE MACHINE OPERATOR surgery for further evaluation/possible removal of fibroid and I am ordering a CT abdominal/pelvis to confirm presence of hernia in her left groin and referring her to general surgery for further eval. Let me know if any questions, thank you documented in this encounter Plan of Treatment Scheduled Orders Name Type Priority Associated Diagnoses Orde r Schedule CT Abdomen Pelvis w/o Contrast Imaging Routine Unilateral inguinal hernia without obstruction or gangrene, recurrence not specified Expected: 06/15/2025, Expires: 06/15/2026 Scheduled Referrals Name Type Priority Associated Diagnoses Orde r Schedule Referral to General Surgery Outpatient Referral Routine Unilateral inguinal hernia without obstruction or gangrene, recurrence not specified Expected: 06/15/2025 (Approximate), Expires: 06/15/2026 documented as of this encounter Visit Diagnoses Diagnosis Unilateral inguinal hernia without obstruction or gangrene, recurrence not specified- Primary documented in this encounter Additional Health Concerns Assessment Noted Time PHQ-9 Depression Total Score: 4 10/15/19 25 2:21 PM EST documented as of this encounter Care Teams Dishwashing Machine Operator Relationship Specialty Start Date End Date Carlton Mota CNP PCP - General Family Medicine 09/05/24 documented as of this encounter
--- OUTSIDE RECORDS SUMMARY | 2025-06-16 09:43 | XMS_ITS | Clinical Summary ---
Author Organization [employer] Address [address] [facility] 7[address] [place] [address] Care Team Providers Care Beck Tender Name Role Phone Carlton Mota CNP Primary Care Provider [phone] Allergies No known active allergies Medications * [...] to reevaluate size of fibroid Also provided RESEARCH COORDINATOR referral for removal consultation Based on exam, [...] Encounters Date Type Department Care Team Description 06/15/2025 Results Follow-Up [facility] [address] [place] [address] Carlton Mota CNP US Pelvis Transvaginal 05/01/2025 9:00 AM EDT Office Visit [facility] [address] [place] [address] Carlton Mota CNP History of uterine fibroid (Primary Dx); Pelvic cyst in female; Chest pain, unspecified type 05/01/2025 Travel 04/30/2025 Travel 04/29/2025 Telephone [facility] [address] [place] [address] Carlton Mota CNP chart prep from Last [...] Asthma Son Jackie Robertson Intellectual Disability Son Jcakie Robertson Relation Name Status Comments Maternal Grandfather Fide Maldonados Maternal Grandmother Fide Maldonados Mother Emma Fletcher Son Jackie Robertson Social [...] Procedure Name Priority Date/Time Associated Diagnosis Comments US PELVIS TRANSVAGINAL Routine 11:09 AM EDT History of uterine fibroid Pelvic cyst in female ECG 12-LEAD Routine 05/01/2025 11:06 AM EDT [...] Recently Relevant to Health Maintenance Results * US Pelvis Transvaginal (06/12/2025 11:09 AM EDT) Anatomical Region Laterality Modality Pelvis Ultrasound 06/12/2025 11:0 9 AM EDT Narrative 06/12/2025 12:30 PM EDT [address] [address] Ultrasound Report Signed Patient: Ranjith Nava#: [id number] : 1990 Acct:[id number] Age/Sex: 34 / F ADM Date: 06/12/25 Loc: HO.US Attending Dr: Carlton Mota CHAR BELT OPERATOR Ordering Physician: Carlton Mota NP Date of Service: 06/12/25 Procedure(s): US pelvic and transvaginal Accession Number(s): [id number] cc: Carlton Mota NP Reason for Exam: H/O UTERINE FIBROID, PELVIC CYST EXAMINATION: US PELVIS TRANSABDOMINAL AND TRANSVAGINAL HISTORY: H/O UTERINE FIBROID, PELVIC CYST COMPARISON: There are no prior studies available for comparison. TECHNIQUE: Transabdominal and endovaginal real-time 2D amaya-scale ultrasound was performed. FINDINGS: Uterus: The uterus is normal in size, measuring 9.2 x 3.9 x 5.5 cm. Myometrium has a normal echotexture. There is a left-sided fibroid measuring 8 x 9 x 9 mm. Endometrium: The endometrial stripe measures 4 mm in thickness. Right ovary: The right ovary measures 4.2 x 1.8 x 4.2 cm. The right ovary is normal in size and echotexture. There is a 1.9 x 1.3 x 1.6 cm cyst versus follicle. Left ovary: The left ovary measures 3.4 x 2.0 x 2.1 cm. There is a 1.5 x 1.1 x 1.7 cm cystic focus with low-level internal echoes which may represent a hemorrhagic cyst. Pelvic fluid: none. Imaging of a palpable abnormality in the left groin demonstrates a normal-appearing subcentimeter lymph nodes and a 2.6 x 0.9 x 1.4 cm hypoechoic area which could represent a hernia. US/US pelvic and transvaginal IMPRESSION: 1. 9 mm left uterine fibroid. 2. 1.5 x 1.1 x 1.7 cm probable left ovarian hemorrhagic cyst. 3. 2.6 x 0.9 x 1.4 cm hypoechoic area in the left groin which may represent a hernia. Clinical correlation is recommended. Electronically signed by: Jacobo Bland MD 06/12/2025 12:27 PM EDT RP Dictated By: Jacobo Bland MD Signed By: <Electronically signed by Jacobo Bland MD in OV> 06/12/25 1227 DD/ 1109 TD/TT: 06/12/25 1152 Finger Grip Machine Operator: Procedure Note Donotuseinterpreter, Image - 06/12/2025 [place] [address] Ultrasound Report Signed Patient: Anibal Nava R#: [id number] : 1990Acct:[id number] Age/Sex: 34 / FADM Date: 06/12/25 Loc: HO.US Attending Dr: Carlton Mota CHAR BELT OPERATOR Ordering Physician: Carlton Mota NP Date of Service: 06/12/25 Procedure(s): US pelvic and transvaginal Accession Number(s): [id number] cc: Carlton Mota NP Reason for Exam: H/O UTERINE FIBROID, PELVIC CYST EXAMINATION: US PELVIS TRANSABDOMINAL AND TRANSVAGINAL HISTORY: H/O UTERINE FIBROID, PELVIC CYST COMPARISON: There are no prior studies available for comparison. TECHNIQUE: Transabdominal and endovaginal real-time 2D amaya-scale ultrasound was performed. FINDINGS: Uterus: The uterus is normal in size, measuring 9.2 x 3.9 x 5.5 cm. Myometrium has a normal echotexture. There is a left-sided fibroid measuring 8 x 9 x 9 mm. Endometrium: The endometrial stripe measures 4 mm in thickness. Right ovary: The right ovary measures 4.2 x 1.8 x 4.2 cm. The right ovary is normal in size and echotexture. There is a 1.9 x 1.3 x 1.6 cm cyst versus follicle. Left ovary: The left ovary measures 3.4 x 2.0 x 2.1 cm. There is a 1.5 x 1.1 x 1.7 cm cystic focus with low-level internal echoes which may represent a hemorrhagic cyst. Pelvic fluid: none. Imaging of a palpable abnormality in the left groin demonstrates a normal-appearing subcentimeter lymph nodes and a 2.6 x 0.9 x 1.4 cm hypoechoic area which could represent a hernia. US/US pelvic and transvaginal IMPRESSION: 1. 9 mm left uterine fibroid. 2. 1.5 x 1.1 x 1.7 cm probable left ovarian hemorrhagic cyst. 3. 2.6 x 0.9 x 1.4 cm hypoechoic area in the left groin which may represent a hernia. Clinical correlation is recommended. Electronically signed by: Jacobo Bland MD 06/12/2025 12:27 PM EDT RP Dictated By: Jacobo Bland MD Signed By: <Electronically signed by Jacobo Bland MD in OV> 06/12/25 1227 DD/ 1109 TD/TT: 06/12/25 1152 Finger Grip Machine Operator: [facility] US PROCEDURES Final R esult * ECG 12 lead (05/01/2025 11:06 AM EDT) Narrative Carlton Mota CNP - 05/01/2025 11:06 AM EDT 62 bpm, regular rhythm, normal R wave progression, normal axis Cosigned by Anaid Ma MD [facility] ECG ORDERABLES Final Res ult * (ABNORMAL) Comprehensive Metabolic Panel (05/01/2025 10:20 AM EDT) Sodium 139 135 - 145 mmol/L [facility] Potassium 4.5 3.3 - 5.1 mmol/L [facility] Chloride 108 96 - 108 mmol/L [facility] Carbon Dioxide 25 22 - 29 mmol/L [facility] Anion Gap 11(L) 12 - 20 [facility] Urea Nitrogen (BUN) 8(L) 9 - 16 mg/dL [facility] Creatinine, Serum 0.82 0.5 - 1.4 mg/dL [facility] Estimated Glomerular Filt Rate >60 [facility] Comment:Chronic Kidney Disea se: Estimated GFR < 60 mL/min/1.43u5Kahjej Kidney Disease: Estimated GFR < 15 mL/min/1.73m2 Glucose 87 60 - 115 mg/dL [facility] Calcium 9.2 8.4 - 10.2 mg/dL [facility] Bilirubin, Total 0.6 0.0 - 1.0 mg/dL [facility] Aspartate Amino Transferase 25 5 - 31 U/L [facility] Alanine Aminotransferase 16 0 - 31 U/L [facility] Total Protein 7.1 6.5 - 8.0 g/dL [facility] Albumin Level 4.5 3.5 - 5.0 g/dL [facility] Alkaline Phosphatase 48 39 - 117 U/L [facility] Blood Venous blood specimen / Unknown 05/01/2025 10:20 AM EDT 05/01/2025 2:18 PM EDT [facility] LAB BLOOD ORDERABLES Tiara l Result [facility] [address] [place] [phone] * HPV mRNA E6/E7 w/Reflex to HPV Genotypes 16, 18/45 (02/18/2024 9:50 AM EDT) HPV nRNA E6/E7 Not Detected [facility] Comment:Methodology: Transcr iption-Mediated AmplificationThis assay detects E6/E7 viral messenger RNA (mRNA) from 14high-risk HPV types(16,18,31,33,35,39,45,51,52,56,58,59,66,68).Cervical sources are required for HPV testing.If a vaginal source from a patient who has had atotal hysterectomy with removal of cervix wassubmitted, please contact the testing laboratoryfor alternative testing options.For additional information, please refer tohttp://education.Human Dem[employer]/faq/QNG588u2(This link if provided for information/educational purposes only.)THIS TEST PERFORMED AT:[facility] [address] [phone] DIRECTOR: KIMMY MA MD HPV mRNA E6/E7 [facility] HPV 16 RNA [facility] HPV 18/45 RNA [facility] 02/18/2024 9:50 AM EDT 02/26/2024 1:43 PM EDT [facility] LAB CYTOLOGY ORDERABLES F inal Result Performing Organization Address [facility]/ZIP Co de Phone Number [facility] [address] [place] [phone] * Pap Smear (02/18/2024 12:00 AM EDT) Swab [facility] LAB CYTOLOGY ORDERABLES F inal Result Performing Organization Address [facility] Co de Phone Number [facility] [address] [place] [phone] * HEPATITIS C AB W/REFL TO HCV RNA, QN, PCR (08/16/2020 2:20 PM EST) HEPATITIS C ANTIBODY NON-REACT [facility]-REACT [facility] INDEX 0.01 <1.00 [facility] Comment: HCV antibody was non-reactive. There is no laboratory evidence of HCV infection. In most cases, no further action is required. However, if recent HCV exposure is suspected, a test for HCV RNA (test code 55745) is suggested. For additional information please refer to http://education.Human Demand/faq/WZW39t0 (This link is being provided for informational/ educational purposes only.) 08/16/2020 2:20 PM EST Historical Provider HISTORICAL/NON ORDERABLE LABS Final Result Performing Organization Address [facility] Co de Phone Number [facility] [address] * HIV 1/2 ANTIGEN/ANTIBODY,FOURTH GENERATION W/RFL [...] purpose. For additional information please refer to http://education.Human Demand/faq/BYW237 (This link is being provided for informational/ educational purposes only.) The performance of this assay has not been clinically validated in patients less than 2 years old. 08/16/2020 2:20 PM EST Historical Provider LAB BLOOD ORDERABLES Tiara l Result Performing Organization Address [facility] de Phone Number [facility] [address] from Last 3 Months or Most Recently Relevant to Health Maintenance [id number] [id number] [place] [id number] Care Teams Beck Tender Relationship Specialty Start Date End Date Carlton Mota CNP PCP - General Family Medicine 09/05/24
--- OUTSIDE RECORDS SUMMARY | 2025-06-16 09:43 | XMS_ITS | Encounter Summary ---
Author Organization [employer] Address [address] [facility] [address]t [place] [address] Care Team Providers Care Felt Hanger Name Role Phone Carlton Mota CNP Primary Care Provider [phone] Reason for Visit * Reason Onset Date Comments Lab Orders 10/16/2024 Encounter Details Date Type Department Care Team (Late st Contact Info) Description 10/16/2024 Telephone [facility] [address] [place] [address] Carlton Mota CNP [address] [place], [place] [phone] Lab Orders Social History Tobacco Use Types [...] 10/16/2024 10:58 AM EST [facility] ([facility]) is calling in requesting a new Pelvis and Transvaginal Ultrasound to [facility] to be Faxed to [phone]. documented in this encounter Plan of Treatment Not on file documented as of this encounter Visit Diagnoses Not on filedocumented in this encounter Additional Health Concerns Assessment Noted Time PHQ-9 Depression Total Score: 4 10/15/19 25 2:21 PM EST documented as of this encounter Care Teams Felt Hanger Relationship Specialty Start Date End Date Carlton Mota CNP PCP - General Family Medicine 09/05/24 documented as of this encounter
== END ==
LOC: HO.CARD 08:52
DX: R07.9 Chest pain, unspecified (principal)
CPT/HCPCS: 93306; Q9957

== ENCOUNTER → 2025-06-16 08:55 | Outpatient (BNV) | payer MEDICAID, SELFPAY | PROVIDERS: Visit Provider Internal Medicine | DX: I25.3 Aneurysm of heart (principal) | CPT/HCPCS: 93306; 93356 ==

== ENCOUNTER 2025-07-06 09:48 | Outpatient (AMB) | payer MEDICAID, SELFPAY ==
--- NOTE | 2025-07-06 09:55 | A.OFFVIS_ITS ---
Vital Signs 07/06/25 10:03 Height 5 ft 5 in Weight 164 lb BMI 27.3 BP 126/74 Blood Pressure Location Rt brachial Position Sitting Pulse 63 Intake Visit Reasons: umbilical hernia Intake Note: Patient referred by pcp Benito Mota BLOOM CONVEYOR OPERATOR for assessment and treatment of Unilateral inguinal hernia. Patient c/o: on and off tenderness. Lt lower abdomen feels inflamed. Sometimes nausea but unsure if it's related to hernia. Imaging: US pelvis and transvaginal~ 06-12-2025 Hydrate Control Tender Required: No Accompanied by: Self / Same As Patient Allergies No Known Allergies Allergy (Verified 07/06/25 10:01) Medication List - Last Reconciled 07/06/25 by Steve Wang MD cariprazine (Vraylar) 3 mg PO DAILY clonidine HCl 0.1 mg PO BID PRN sertraline 100 mg PO DAILY zolpidem 10 mg PO BEDTIME HPI Comments Details: The patient is a 34-year-old female presenting with a suspected hernia in the left groin area. She reports noticing the hernia approximately six to seven months ago, initially presenting as a small lump. The patient describes the hernia as sometimes hard and causing a blocking sensation, particularly when sitting. The patient has a history of a tummy tuck but denies any other surgeries such as a section. She reports no pain in the upper abdomen and no other hernias noted in that area. [facility] Medical History (Updated 07/06/25 @ 10:22 by Steve Wang MD) Headache Anxiety Anemia Chest pain History of uterine fibroid Surgical History (Updated 06/30/25 @ 15:19 by JAVID Jacobsen) H/O tubal ligation H/O abdominoplasty Family History (Updated 06/30/25 @ 15:24 by JAVID Jacobsen) Mother Arthritis Diabetes Epilepsy Son Asthma Intellectual disability Maternal Grandmother Diabetes Maternal Grandfather Arthritis Diabetes Social History (Updated 06/30/25 @ 15:26 by JAIVD Jacobsen) Substance Use Type: Marijuana Substance Use Frequency Other:: smokes once a month Sexually active: Yes (Partners Male) Sexual orientation: Straight/Heterosexual Gender identity: Female Female Reproductive History Menstrual Ab induced: 2 Review of Systems Narrative - Gastrointestinal: Reports a lump in the left groin area, sometimes hard and causing a blocking sensation. Denies pain in the upper abdomen. Physical Exam Vital Signs: Last Vital Signs Pulse 63 07/06/25 10:03 BP 126/74 07/06/25 10:03 BMI result Body Mass Index 27.3 Const General: cooperative, healthy appearing and comfortable Nutritional Appearance: average body habitus Orientation/consciousness: oriented to person, oriented to place and oriented to time Limitations: no limitations HEENT Head: Yes normal to inspection and Yes normocephalic Ears: hearing grossly normal bilaterally Face and sinus: Yes normal facial exam Eyes General: appearance normal, both eyes and all related structures Sclerae: sclerae normal Pupils: Equal, round and reactive pupils present EOM: EOMs intact bilaterally Neck Neck: Yes normal visual inspection Resp Effort & Inspection: normal respiratory effort, able to speak in complete sentences and abnormal respiratory pattern Auscultation: clear to auscultation bilaterally Cardio Rate: regular rate Rhythm: regular rhythm GI Other: - Abdominal: Palpation of the left groin area revealed a hernia, confirmed by cough impulse test. Hernia is small and sliding. No evidence hernia appreciated in the right inguinal region. No tenderness or hernia noted in the upper abdomen. Extensive transverse lower abdominal scar and periumbilical scar consistent with history of panniculectomy. No evidence of hepatosplenomegaly. General: Yes no CVA tenderness Back/Spine/Pelvis Back: no CVA tenderness Cervical Spine: normal cervical lordosis Thoracic/Lumbar Spine: thoracic and lumbar spine normal to inspection Skin General skin exam: no rashes or lesions noted Neuro General: oriented to person, oriented to place and oriented to time Cranial nerves: Yes Equal, round and reactive pupils present Extrem General: Yes normal to inspection Assessment & Plan Assessment & Plan (1) Left inguinal hernia: Code(s): K40.90 - Unilateral inguinal hernia, without obstruction or gangrene, not specified as recurrent Category: Medical Plan: The plan is to perform a laparoscopic repair of the left groin hernia using a patch to seal the defect from the inside. The procedure involves small incisions and the use of a camera to locate and repair the hernia. Risks discussed include bleeding, infection, pain, and the possibility of hernia recurrence. I discussed with the patient that the hernia is essentially a hole, and the lump felt is due to this defect. I explained the laparoscopic procedure, which involves using small incisions and a camera to repair the hernia from the inside with a patch. The risks of the procedure, including bleeding, infection, pain, damage to surrounding structures and recurrence, were discussed. I also mentioned that if a hernia is found on the right side during surgery, it will be repaired at the same time. Coding Level of Care Code New Pt Level 3 (40473) Diagnoses Left inguinal hernia K40.90 Time Spent (min) 30 Comment Patient visit and coordination of care
[2025-07-06 10:03] VITALS: BP 126/74; PULSE 63; BMI 27.3
== END 2025-07-06 10:14 | disposition home or self-care (01) ==
LOC: HO.HGS 09:49
PROVIDERS: Visit Provider Surgery
DX: K40.90 Unilateral inguinal hernia, without obstruction or gangrene, not specified as recurrent (principal)
CPT/HCPCS: 99203

== ENCOUNTER → 2025-07-06 09:48 | Outpatient (BNVA) | payer MEDICAID, SELFPAY | PROVIDERS: Visit Provider Surgery | DX: K40.90 Unilateral inguinal hernia, without obstruction or gangrene, not specified as recurrent (principal) | CPT/HCPCS: 99202 ==

== ENCOUNTER 2025-08-11 09:55 | Outpatient (AMB) | payer MEDICAID, SELFPAY ==
--- NOTE | 2025-08-11 09:56 | A.OFFVIS_ITS ---
Vital Signs 08/11/25 09:59 Height 5 ft 5 in Weight 162 lb 4.163 oz BMI 27.0 BP 100/60 Blood Pressure Location Lt brachial Position Sitting Pulse 61 Pulse Source Monitor Intake Visit Reasons: abnormal echo Hydrogen Plant Operations Manager Required: Yes Hydrogen Plant Operations Manager Name: perlita/ana Accompanied by: Self / Same As Patient Allergies No Known Allergies Allergy (Verified 07/06/25 10:01) Medication List - Last Reconciled 08/11/25 by Fede Collier MD cariprazine (Vraylar) 3 mg PO DAILY clonidine HCl 0.1 mg PO BID PRN doxepin 25 mg PO DAILY mirtazapine 15 mg PO BEDTIME ondansetron HCl 4 mg PO BID PRN sertraline 100 mg PO DAILY trazodone 75 mg PO DAILY PRN zolpidem 10 mg PO BEDTIME HPI Comments Details: Ranjith has been referred for cardiac evaluation. It seems that she was having some palpitations that led to a echocardiogram which raised concern for possible LV noncompaction. She also had an atrial septal aneurysm. Patient herself does not have any known cardiac issues. History of some cardiac issues in her grandparents, but nothing otherwise with regard to family history. Otherwise, she does not have any clear-cut exertional shortness of breath or other overt cardiac symptoms. [facility] Medical History (Updated 08/11/25 @ 10:39 by Fede Collier MD) Headache Anxiety Anemia Chest pain History of uterine fibroid Surgical History H/O tubal ligation H/O abdominoplasty Family History (Updated 06/30/25 @ 15:24 by JAVID Jacobsen) Mother Arthritis Diabetes Epilepsy Son Asthma Intellectual disability Maternal Grandmother Diabetes Maternal Grandfather Arthritis Diabetes Social History (Updated 06/30/25 @ 15:26 by JAVID Jacobsen) Substance Use Type: Marijuana Sexual orientation: Straight/Heterosexual Gender identity: Female Review of Systems Const Denies chills, Denies fatigue, Denies fever(s), Denies frequent falls, Denies weakness, Denies weight gain and Denies weight loss ENT Denies dizziness Card Denies chest pain, Denies leg edema, Denies lightheadedness, Denies palpitations, Denies dyspnea, Denies dyspnea on exertion and Denies orthopnea Resp Denies cough, Denies dyspnea and Denies dyspnea on exertion GI Denies bloating and Denies change in bowel habits Musc Denies muscle weakness, Denies numbness and Denies tingling Neuro Denies dizziness, Denies frequent falls, Denies numbness, Denies tingling and Denies weakness Endo Denies fatigue and Denies palpitations Physical Exam Vital Signs: Last Vital Signs Pulse 61 08/11/25 09:59 BP 100/60 08/11/25 09:59 BMI result Body Mass Index 27.0 Const General: comfortable and no acute distress Orientation/consciousness: patient oriented x3 HEENT Other: Unremarkable Head: Yes normal to inspection Neck Neck: Yes normal visual inspection Chest Chest palpation & inspection: normal inspection of the chest Resp Auscultation: clear to auscultation bilaterally Cardio Palpation: normal PMI Heart sounds: S1 normal heart sound present, S2 normal heart sound present, no gallops, no murmurs and no rubs GI Palpation (GI): Soft to palpation Back/Spine/Pelvis Other: unremarkable Skin General skin exam: no rashes or lesions noted Neuro General: patient oriented x3 Extrem General: Yes normal to inspection Psych Mental Status: mental status grossly normal Office Procedures EKG Details: EKG with underlying sinus rhythm at 61/Min; no ischemic changes; [place] [address]-[id number], Complete Assessment & Plan Assessment & Plan (1) Abnormal trabeculation of left ventricular myocardium: Code(s): I42.8 - Other cardiomyopathies Category: Medical Plan: Unclear if it is normal variant versus LV noncompaction. Obtain cardiac MRI. (2) Atrial septal aneurysm: Code(s): I25.3 - Aneurysm of heart Category: Medical Plan: Echocardiogram with interatrial septal aneurysm bowing to the right. No shunting by color Doppler. No specific implications. Plan Discussion Notes: I reviewed the findings of the recent heart ultrasound with the patient. I explained that while the heart's pumping function and valves are normal, there are some areas of the heart wall that appear thick. I discussed that this finding requires further investigation, and I have ordered a cardiac MRI for a more detailed evaluation. We will determine the next steps in her care after reviewing the results of the MRI. Patient was informed and verbally consented to the use of an ambient scribe for clinic note documentation during this visit. Orders: Orders MR cardiac morph fnct w/wo con Today I42.8 - Other cardiomyopathies Basic Metabolic Panel Today I42.9 - Cardiomyopathy, unspecified NT Pro B Type Natriuretic Pept Today I50.9 - Heart failure, unspecified Coding Level of Care Code New Pt Level 4 (92488) Add On Problem Visit Only Diagnoses Abnormal trabeculation of left ventricular myocardium I42.8 Atrial septal aneurysm I25.3 CPT Codes EKG - CPT: 66952-Ewstmoakamtlzzjuq, Complete ([id number])
[2025-08-11 09:59] VITALS: BP 100/60; PULSE 61; BMI 27.0
--- OUTSIDE RECORDS SUMMARY | 2025-08-11 10:47 | XMS_ITS | Encounter Summary ---
Author Organization [employer] Address [address] [facility] [address] [place] [address] Care Team Providers Care Dog Or Horse Racing Official Name Role Phone Kristie BillyP Primary Care Provider [phone] Sri Campa HOUSING OFFICER Primary Care Provider [phone] Carlton Mota REFINERY OPERATOR Primary Care Provider [phone] Encounter Details Date Type Department Care Team (Late st Contact Info) Description 02/29/2024 Orders Only [facility] MEDICINE [address] [place], [place] [phone] Nidhi Peoples CNM [address] [place], [place] [phone] Social History Tobacco Use Types Packs/Day Years [...] is your housing situation today? I have jaylenbailey elizalde 06/25/[address] you [...] 12:00 AM EDT) Swab us Nidhi Peoples [facility] CYTOLOGY ORDERABLES F inal Result Performing Organization Address City/State/[facility] Co de Phone Number [facility] [address] [place] [phone] documented in this encounter Visit Diagnoses Not on filedocumented in this encounter Additional Health Concerns Assessment Noted Time PHQ-9 Depression Total Score: 12 024 10:38 AM EST documented as of this encounter Care Teams Dog Or Horse Racing Official Relationship Specialty Start Date End Date Kristie Billy FNP [address] [place] [address] PCP - General Family Medicine 02/22/23 04/21/24 Sri Campa NP [address] [place] [address] PCP - General Family Medicine 04/22/24 09/04/24 Carlton Mota CNP [address] [place] [address] PCP - General Family Medicine 09/05/24 documented as of this encounter
--- OUTSIDE RECORDS SUMMARY | 2025-08-11 10:47 | XMS_ITS | Encounter Summary ---
Author Organization [employer] Address [address] [facility] [address] [place] [address] Care Team Providers Care Director Of Blood Name Role Phone Carlton Mota CNP Primary Care Provider [phone] Reason for Visit * Reason Onset Date Comments FYI 06/25/2025 Encounter Details Date Type Department Care Team ([facility] st Contact Info) Description 06/25/[address] [facility] MED & PEDS [address] [place], [place] [phone] Carlton Mota CNP [address] [place] [address] FYI Social History Tobacco Use Types Packs/Day Years [...] encounter Miscellaneous Notes * Telephone Encounter - Carlton Mota CNP - 06/25/2025 1:14 PM EST Yes I will place referral now, thank you! * Telephone Encounter - Pineda Adam - 06/25/2025 11:50 AM EST Tc from [facility] with Cardiovascular [facility] reporting that pt did a echocardiogram it came back abnormal and will need cardiac evaluation. If PCP decides too, pt will need a referral. Any questions contact [facility] at [phone] documented in this encounter Plan of Treatment Not on file documented as of this encounter Visit Diagnoses Not on filedocumented in this encounter Additional Health Concerns Assessment Noted Time PHQ-9 Depression Total Score: 4 10/15/19 2:21 PM EST documented as of this encounter Care Teams Director Of Blood Relationship Specialty Start Date End Date Carlton Mota CNP PCP - General Family Medicine 09/05/24 documented as of this encounter
--- OUTSIDE RECORDS SUMMARY | 2025-08-11 10:47 | XMS_ITS | Encounter Summary ---
Author Organization [employer] Address [address] [facility] [address] [place] [address] Care Team Providers Care Imaging Analyst Name Role Phone Carlton Mota CNP Primary Care Provider [phone] Reason for Visit * Reason Onset Date Comments Lab Orders 10/16/2024 Encounter Details Date Type Department Care Team (Late st Contact Info) Description 10/16/2024 Telephone [facility] MEDICINE [address] [place] [address] Carlton Mota CNP [address] [place], [place] [phone] Lab Orders Social History Tobacco Use Types [...] Miscellaneous Notes * Telephone Encounter - Italo Cleveland - 10/16/2024 10:58 AM EST Tc [facility] ([facility]) is calling in requesting a new Pelvis and Transvaginal Ultrasound to [facility] to be Faxed to [phone]. documented in this encounter Plan of Treatment Not on file documented as of this encounter Visit Diagnoses Not on filedocumented in this encounter Additional Health Concerns Assessment Noted Time PHQ-9 Depression Total Score: 4 10/15/19 25 2:21 PM EST documented as of this encounter Care Teams Imaging Analyst Relationship Specialty Start Date End Date Carlton Mota CNP PCP - General Family Medicine 09/05/24 documented as of this encounter
--- OUTSIDE RECORDS SUMMARY | 2025-08-11 10:47 | XMS_ITS | Clinical Summary ---
Author Organization [employer] Address [address] [facility] 7t [place] [address] Care Team Providers Care Glass Tinter Name Role Phone Carlton Mota CNP Primary Care Provider [phone] Allergies No known active allergies Medications * [...] USEAS Y V MITOS 04/03/20 25 Active Vraylar 3 MG capsule TOME 1 C PSULA POR V A ORAL TODOS LOS D 06/05/20 25 Active doxepin (SINEquan) 25 MG capsule Take 25 mg by mouth at bedtime. 06/14/20 25 Active mirtazapine (Remeron) 15 MG tablet TOME 1 TABLETA POR V A ORAL TODOS LOS D AL ACOSTARSE 05/08/20 25 Active zolpidem (Ambien) 10 MG tablet TOME 1 TABLETA POR V A ORAL TODOS LOS D AL ACOSTARSE 06/05/20 25 Active sertraline (Zoloft) 100 MG tablet TOME 1 TABLETA POR V A ORAL TODOS LOS D 06/05/20 25 Active Omeprazole 20 MG tablet delayed-releaseI ndications:Gastr oesophageal reflux disease without esophagitis Take 1 tablet (20 mg) by mouth Once per day. 30 tablet 11 07/08/20 25 Active meclizine (Antivert) 25 MG tabletIndication s:Dizziness Take 1 tablet (25 mg) by mouth if needed in the morning, at noon, and at bedtime for dizziness for up to 10 days. 30 tablet 07/08/20 25 025 Active Problems Problem Noted Date Diagnosed Date History of uterine fibroid 10/15/2024 Assessment & Plan (10/15/2024 4:46 PM EST): Will obtain repeat pelvic us to reevaluate size of fibroid Also provided SUPERVISOR GAME FARM referral for removal consultation Based on exam, [...] Encounters Date Type Department Care Team Description 07/08/2025 9:45 AM EST Office Visit [facility] [address] [place] [address] Carlton Mota CNP Gastroesophageal reflux disease without esophagitis (Primary Dx); Dizziness 07/08/2025 Travel 07/06/2025 Travel 06/29/2025 Telephone [facility] [address] [place] [address] Carlton Mota CNP chart prep 06/25/2025 Orders Only [facility] [address] [place] [address] Carlton Mota CNP Abnormal echocardiogram (Primary Dx) 06/25/2025 Telephone [facility] [address] [place] [address] Carlton Mota CNP FYI 06/16/2025 Travel 06/15/2025 Results Follow-Up [facility] [address] [place] [address] Carlton Mota CNP US Pelvis Transvaginal from Last 3 Months Immunizations Immunization Administration Dates Next Due Hep B, adult 10/22/2023,02/22/2023 Pfizer Covid-19 Vaccine 12+ carlie-sucrose (Amaya C ap) 01/11/2021,12/21/2020 Tdap 10/22/2023 Family History Medical History Relation Name Comments Arthritis Maternal Grandfather Fide Grigsby Diabetes Maternal Grandfather Fide Grigsby Diabetes Maternal Grandmother Fide Grigsby Arthritis Mother Emma Justine Diabetes Mother Emma Justine epilepsy Mother Emma Reyesdejo Asthma Son Jackie Robertson Intellectual Disability Son Jackie Robertson Relation Name Status Comments Maternal Grandfather Fide Grigsby Maternal Grandmother Fide Grigsby Mother Emma Dominguezjo Son Jackie Robertson Social History Tobacco Use [...] Sign Reading Time Taken Comments Blood Pressure 116/68 07/08/2025 9:34 AM EST Pulse 60 07/08/2025 9:34 AM EST Temperature 36.6 C (97.9 F) 07/08/2025 9:34 AM EST Respiratory Rate 16 07/08/2025 9:34 AM EST Oxygen Saturation 99% 07/08/2025 9:34 AM EST Inhaled Oxygen Concentration - - Weight 75.8 kg (167 lb) 07/08/2025 9:34 AM EST Height 165.1 cm (5' 5 ) 07/08/2025 9:34 AM EST Body Mass Index 27.79 07/08/2025 9:34 AM EST Plan of Treatment Health Maintenance Due Date [...] Associated Diagnosis Comments US PELVIS TRANSVAGINAL Routine 06/12/2025 11:09 AM EDT History of uterine fibroid Pelvic cyst in female HPV MRNA E6/E7 REFLEX TO HPV 16, [...] AM EDT Narrative 06/12/2025 12:30 PM EDT [place] [address] Ultrasound Report Signed Patient: Ranjith Nava#: [id number] : 1990 Acct:[id number] Age/Sex: 34 / F ADM Date: 06/12/25 Loc: . Attending Dr: Carlton Mota VISION SPECIALIST Ordering Physician: Carlotn Mota NP Date of Service: 06/12/25 Procedure(s): US pelvic and transvaginal Accession Number(s): [id number] cc: Carlton Mota NP Reason for Exam: [...] Jacobo Bland MD 06/12/2025 12:27 PM EDT Dictated By: Jacobo Bland MD Signed By: <Electronically signed by Jacobo Bland MD in OV> 06/12/25 1227 DD/ 1109 TD/TT: 06/12/25 1152 Cultural Anthropology Professor: Procedure Note Donotuseinterpreter, Image - 06/12/[address] [address] Ultrasound Report Signed Patient: Anibal Nava R#: [id number] : 1990Acct:[id number] Age/Sex: 34 / FADM Date: 06/12/25 Loc: HO.US Attending Dr: Carlton Mota VISION SPECIALIST Ordering Physician: Carlton Mota NP Date of Service: 06/12/25 Procedure(s): US pelvic and transvaginal Accession Number(s): [id number] cc: Carlton Mota NP Reason for Exam: [...] Jacobo Bland MD 06/12/2025 12:27 PM EDT Dictated By: Jacobo Bland MD Signed By: <Electronically signed by Jacobo Bland MD in OV> 06/12/25 1227 DD/ 1109 TD/TT: 06/12/25 1152 Cultural Anthropology Professor: Carlton [facility] IM US PROCEDURES Final R esult * HPV mRNA E6/E7 w/Reflex to HPV Genotypes 16, 18/45 (02/18/2024 9:50 AM EDT) HPV nRNA E6/E7 Not Detected [facility] Comment:Methodology: Transcr iption-Mediated AmplificationThis assay detects E6/E7 viral messenger RNA (mRNA) from 14high-risk HPV types(16,18,31,33,35,39,45,51,52,56,58,59,66,68).Cervical sources are required for HPV testing.If a vaginal source from a patient who has had atotal hysterectomy with removal of cervix wassubmitted, please contact the testing laboratoryfor alternative testing options.For additional information, please refer tohttp://education.Skyonic/faq/IUV477x1(This link if provided for information/educational purposes only.)THIS TEST PERFORMED AT:[facility] [address] [phone] DIRECTOR: KIMMY MA MD HPV mRNA E6/E7 [facility] HPV 16 RNA [facility] HPV 18/45 RNA [facility] 02/18/2024 9:50 AM EDT 02/26/2024 1:43 PM EDT Nidhi Peoples [facility] CYTOLOGY ORDERABLES F inal Result [facility] [address] [place] [address] [phone] * Pap Smear (02/18/2024 12:00 AM EDT) Swab Nidhi SHUKLA LAB CYTOLOGY ORDERABLES F inal Result [facility] [address] [place] [address] [phone] * HEPATITIS C AB W/REFL TO HCV RNA, QN, PCR (08/16/2020 2:20 PM EST) HEPATITIS C ANTIBODY NON-REACT АЛЕКСАНДР NON-REACT АЛЕКСАНДР [facility] INDEX 0.01 <1.00 [facility] Comment: HCV antibody was non-reactive. There is no laboratory evidence of HCV infection. In most cases, no further action is required. However, if recent HCV exposure is suspected, a test for HCV RNA (test code 19386) is suggested. For additional information please refer to http://StrongView.Skyonic/faq/XCD89b8 (This link is being provided for informational/ educational purposes only.) 08/16/2020 2:20 PM EST Historical Provider MD HISTORICAL/NON ORDERABLE LABS Final Result [facility] [address] * HIV 1/2 ANTIGEN/ANTIBODY,FOURTH GENERATION W/RFL (08/16/2020 2:20 PM EST) HIV-1/2 ANTIGEN AND ANTIBODIES, 4TH GENERATION W/ REFLEX NON-REACT АЛЕКСАНДР NON-REACT АЛЕКСАНДР [facility] Comment: HIV-1 antigen and HIV-1/HIV-2 [...] purpose. For additional information please refer to http://StrongView.Skyonic/faq/ISG241 (This link is being provided for informational/ educational purposes only.) The performance of this assay has not been clinically validated in patients less than 2 years old. 08/16/2020 2:20 PM EST us Historical Provider LAB BLOOD ORDERABLES Tiara valladares Result [facility] [address] from Last 3 Months or Most Recently Relevant to Health Maintenance [facility] Care Teams Glass Tinter Relationship Specialty Start Date End Date Carlton Mota CNP PCP - General Family Medicine 09/05/24
== END 2025-08-11 10:23 | disposition home or self-care (01) ==
LOC: HO.HCS 09:55
PROVIDERS: Visit Provider Internal Medicine
DX: I42.8 Other cardiomyopathies (principal); I25.3 Aneurysm of heart
CPT/HCPCS: 93010; 99214

== ENCOUNTER → 2025-08-11 09:55 | Outpatient (BNVA) | payer MEDICAID, SELFPAY | PROVIDERS: Visit Provider Internal Medicine | DX: I42.8 Other cardiomyopathies (principal); I25.3 Aneurysm of heart | CPT/HCPCS: 93005; 99212 ==